=== PATIENT | female | born 1940 | race Caucasian/White ===

== ENCOUNTER 2019-08-29 10:43 | Outpatient (CLI) | payer MEDICARE, OTHER, SELFPAY ==
[2019-08-29 11:38] LABS: Hemoglobin A1C 5.6 % (<5.7)
[2019-08-29 11:42] LABS: Blood Urea Nitrogen 29 mg/dL (7-17); Calcium 8.5 mg/dL (8.4-10.2); Carbon Dioxide 28 mmol/L (22-30); Chloride 99 mmol/L (98-107); Estimated Glomerular Filt Rate 60; Glucose 108 mg/dL (65-105); Potassium 5.1 mmol/L (3.4-5.0); Sodium 134 mmol/L (137-145)
== END 2019-08-29 10:44 | disposition home or self-care (01) ==
PROVIDERS: PCP Internal Medicine; Visit Provider Internal Medicine
DX: J44.9 Chronic obstructive pulmonary disease, unspecified (principal); D84.9 Immunodeficiency, unspecified; Z72.0 Tobacco use; Z79.899 Other long term (current) drug therapy
CPT/HCPCS: 36415; 80048; 83036

== ENCOUNTER 2019-09-19 15:49 | Outpatient (CLI) | payer MEDICARE, OTHER, SELFPAY ==
[2019-09-19 16:31] LABS: Blood Urea Nitrogen 32 mg/dL (7-17); CRP < 0.5 mg/dL (<1.0); Calcium 7.9 mg/dL (8.4-10.2); Carbon Dioxide 26 mmol/L (22-30); Chloride 100 mmol/L (98-107); Creatine Kinase 22 U/L (30-135); Estimated Glomerular Filt Rate 60; Glucose 113 mg/dL (65-105); Potassium 4.8 mmol/L (3.4-5.0); Sodium 132 mmol/L (137-145)
[2019-09-19 16:53] LABS: Hemoglobin A1C 5.6 % (<5.7)
[2019-09-19 17:02] LABS: Erythrocyte Sedimentation Rate 1 mm/hr (0-20)
[2019-09-22 11:26] LABS: Aldolase 6.8 U/L (<=8.1)
== END 2019-09-19 15:50 | disposition home or self-care (01) ==
PROVIDERS: PCP Internal Medicine; Visit Provider Internal Medicine
DX: G72.0 Drug-induced myopathy (principal); R54 Age-related physical debility; T38.0X5A Adverse effect of glucocorticoids and synthetic analogues, initial encounter; Z79.899 Other long term (current) drug therapy
CPT/HCPCS: 36415; 80048; 82085; 82550; 83036; 85652; 86140

== ENCOUNTER 2019-11-23 10:39 | Outpatient (CLI) | payer MEDICARE, OTHER, SELFPAY ==
[2019-11-23 11:05] LABS: Basophils Percent Auto 0.2 % (0.2-1.2); Hematocrit 47.9 % (37.0-47.0); Hemoglobin 15.1 g/dL (12.0-15.0); Immature Granulocyte Absolute 0.14 K/mm3 (0.00-0.031); Immature Granulocyte Percent A 0.7 % (0-0.5); Lymphocytes Absolute Auto 0.79 K/mm3 (0.9-3.2); Mean Corpuscular HGB Conc 31.5 g/dl (32-36); Mean Corpuscular Hemoglobin 24.4 pg (26-34); Mean Corpuscular Volume 77.5 fl (80-100); Monocytes Absolute Auto 0.5 K/mm3 (0.1-0.6); Monocytes Percent Auto 2.6 % (2.6-8.5); Neutrophils Absolute Auto 18.3 K/mm3 (1.3-6.7); Neutrophils Percent Auto 92.5 % (45.5-73.1); Platelet Count Result 259 k/mm3 (150-375); Red Blood Count 6.18 M/mm3 (4.2-5.4); White Blood Count 19.8 K/mm3 (4.5-10.0)
== END 2019-11-23 10:40 | disposition home or self-care (01) ==
PROVIDERS: PCP Internal Medicine; Visit Provider Podiatrist Foot & Ankle Surgery
DX: L03.115 Cellulitis of right lower limb (principal)
CPT/HCPCS: 36415; 85025

== ENCOUNTER 2019-12-14 00:26 | Outpatient (CLI) | payer MEDICARE, OTHER, SELFPAY ==
[2019-12-14 17:43] LABS: SARS-CoV-2 RNA PCR Negative
== END 2019-12-14 00:27 | disposition home or self-care (01) ==
LOC: ANHCOVIDDT 00:26
PROVIDERS: PCP Internal Medicine; Visit Provider Podiatrist Foot & Ankle Surgery
DX: Z01.818 Encounter for other preprocedural examination (principal); Z11.59 Encounter for screening for other viral diseases
CPT/HCPCS: 87635; C9803; U0003

== ENCOUNTER 2019-12-14 08:52 | Outpatient (CLI) | payer MEDICARE, OTHER, SELFPAY ==
--- NOTE | 2019-12-14 08:57 | ECG_ITS ---
SINUS TACHYCARDIA POSSIBLE LEFT ATRIAL ENLARGEMENT LOW QRS VOLTAGE IN PRECORDIAL LEADS BASELINE ARTIFACT- I, II, III, AVR, AVL, AVF ABNORMAL ECG Electronically Signed On 12-15-2019 14:53:37 CDT by Alli Smith D.O. NO PREVIOUS ECG AVAILABLE FOR COMPARISON [facility]
[2019-12-14 09:51] LABS: INR 0.9; Prothrombin Time 11.6 Seconds (11.1-14.7)
== END 2019-12-14 08:53 | disposition home or self-care (01) ==
LOC: ANHSURGERY 08:56
PROVIDERS: Anesthesiology; PCP Internal Medicine; Visit Provider Podiatrist Foot & Ankle Surgery
DX: Z01.818 Encounter for other preprocedural examination (principal); Z72.0 Tobacco use; R79.89 Other specified abnormal findings of blood chemistry; R94.31 Abnormal electrocardiogram [ECG] [EKG]
CPT/HCPCS: 36415; 85610; 85730; 87635; 93005; C9803; U0003

== ENCOUNTER 2019-12-16 11:39 | Inpatient (IN) | payer MEDICARE, OTHER, SELFPAY ==
[2019-12-09 14:03] VITALS: BMI 20.5
[2019-12-16] VITALS (13 sets, daily range): BP systolic 96–116; BP diastolic 52–68; PULSE 64–95; RESP 10–20; TEMP 36.1–36.5; O2SAT 95–100; BMI 22.8
--- NOTE | ~2019-12-16 | XR_ITS ---
EXAMINATION: XR surgery orthopedic DATE: 12/16/2019 10:59 INDICATION: Right foot transmetatarsal amputation TECHNIQUE: A single dorsal plantar fluoroscopic spot image of the right forefoot was obtained during procedure performed by Dr. Mac. Radiologist was not present for the imaging or procedure. The am ount of fluoroscopy time used during this procedure was 0.1 minutes. COMPARISON: 11/25/2018 FINDINGS: Transmetatarsal amputations across the first-fifth metatarsal diaphyses. Alignment and profile joint space at the visualized midfoot appear normal. No fractures. IMPRESSION: 1. Percent and fifth transmetatarsal amputations. See procedure note for further detail. Reviewed, dictated and finalized at location A. IMPRESSION: 1. Percent and fifth transmetatarsal amputations. See procedure note for furthe r detail.
--- NOTE | 2019-12-16 07:12 | WPDHPUPDATE1 ---
History and Physical Update Update Date/Time: 12/16/19 07:12 History and Physical has been reviewed, including an updated exam of the patient. There are NO changes in the patient's condition. Risks, benefits, and alternatives have been discussed and questions answered. Patient agrees to proceed with procedure.
--- NOTE | 2019-12-16 09:19 | WPDANESEPPF ---
Anes - Initial Pre Proc Eval Procedure: Operation Date: 12/16/19 10:30 Proposed Procedures p Transmetatarsal Amputation Right Foot - Torey Mac JR, MD Date/Time: 12/16/19 09:19 Surgeon: Torey Mac JR, MD Pre Op Diagnosis: gangrene right foot Patient Data Age: 78 Gender: F Height: 5 ft 5.5 in Weight: 55.7 kg Allergies Allergy/AdvReac Type Severity Reaction Status Date / Time Bitjpmh-Mta-Rrh Reductase Allergy Unknown Joint Pain Verified 12/16/19 08:52 Inhibitor Home Medications Medication Instructions Recorded Confirmed Type spironolactone 50 mg tablet 50 mg PO BID #180 tablet 05/30/19 12/16/19 Rx albuterol sulfate 2.5 mg INHALATION DAILY PRN ml 07/20/19 12/16/19 History albuterol sulfate 90 mcg/actuation 2 puff INHALATION DAILY PRN gm 07/20/19 12/16/19 History aerosol inhaler bumetanide 2 mg tablet 2 mg PO DAILY tablet 07/20/19 12/16/19 History methocarbamol 750 mg tablet 750 mg PO DAILY tablet 07/20/19 12/16/19 History folic acid 1 mg tablet 1 mg PO DAILY #90 tablet 07/25/19 12/16/19 Rx potassium chloride 20 mEq 20 meq PO BID #180 tablet 11/07/19 12/16/19 Rx tablet,extended release immun glob G(IgG)-pro-IgA 0-50 See Rx Instructions .ROUTE .COMPLEX 11/30/19 12/16/19 History prednisolone sodium phosphate 10 40 mg PO DAILY 11/30/19 12/16/19 History mg disintegrating tablet methylphenidate HCl 10 mg tablet 10 mg PO .COMPLEX #180 tablet 12/06/19 12/16/19 Rx omega-3 fatty acids 1,000 mg 3,000 mg PO DAILY cap 12/06/19 12/16/19 History capsule pregabalin 75 mg capsule 75 mg PO QID cap 12/06/19 12/16/19 History glycopyrrolate 9 mcg-formoterol 2 puff INHALATION BID 90 Days 12/07/19 12/16/19 Rx 4.8 mcg HFA aerosol inhaler #32.1 gm fluticasone propionate 50 1 spray NASAL BID PRN #54.6 ml 12/12/19 12/16/19 Rx mcg/actuation nasal spray,suspension Patient hx anesthesia problems: none Family hx anesthesia problems: none PMFSH Past Medical History Medical History ADD (attention deficit disorder) Adult BMI 19-24 kg/sq m Amputated toe of right foot Anxiety with depression Cancer Chronic low back pain Chronic obstructive pulmonary disease Elevated homocysteine Encounter for routine adult health examination with abnormal findings Frailty Gangrene 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 Muscle pain Muscle weakness Neuropathy Nicotine abuse On assisted drug therapy Pedal edema Polycythemia PVD (peripheral vascular disease) Right upper lobe pulmonary nodule Steroid-induced myopathy Venous insufficiency Surgical History Surgical History Cataract extraction status H/O: hysterectomy History of adenoidectomy History of appendectomy History of spinal fusion History of tonsillectomy Family History Family History Mother Family history of rheumatoid arthritis Family history of diabetes mellitus in first degree relative Diabetes mellitus Family history of pancreatic disease Father Family history of malignant neoplasm Social History Social History Smoking status: Current every day smoker Tobacco type: cigarettes Second hand tobacco smoke exposure: Yes Alcohol intake: never Anes - Eval Final PreProcedure Day of Procedure 12/16/19 09:19 Patient weight: normal Heart: regular rate and rhythm Lungs: decreased breath sounds Airway: Mallampati scale class II Neurological: alert and oriented Last oral intake: >/= 8 hours ASA classification: IV Emergent: no Anesthetic plan: proceed Anesthesia type and monitoring: general LMA and standard monitoring Other findings: solucortef 100mg Informed Consent: The patient's anesthetic plan and its attendant risks and benefits were discussed with the pa
[2019-12-16] MEDS: LACTATED RINGERS 1,000 ML 30 ML IV CONT (09:25)
[2019-12-16] MEDS: ceFAZolin 2 GM/D5W 50 ML 2 GM/50 ML BAG IVPB (10:00)
--- NOTE | 2019-12-16 11:35 | PM.OP ---
Procedure Note - Brief Procedure Note - Brief Date of procedure: 12/16/19 Pre-op diagnosis: gangrene right foot Post-op diagnosis: same Procedure performed: Transmetatarsal amputation right foot Anesthesia: GLMA and local Surgeon: Torey Mac JR, DPM Estimated blood loss (mL): 5 Condition: stable Disposition: floor
--- NOTE | 2019-12-16 14:14 | PCOTNOTE ---
rn coronary care unit spoke with Physician with therapy team present. Patient to be NWB (L) LE and bedrest until Thursday12/18/19. OT to evaluate patient Thursday12/18/19.
--- NOTE | 2019-12-16 14:16 | PCPTNOTE ---
As per RN communication - pt is not to received PT eval until Thursday. On Thursday - DPM will decide what the wt bearing status will be. Will check in with nursing as well for wt bearing status prior to PT eval on Thursday - 12/18/2019.
[2019-12-16] MEDS: CLINDAMYCIN 600 MG/NS 50 ML 600 MG/50 ML PIGGYBACK 100 MG IVPB ×2 (14:44→21:18)
--- NOTE | 2019-12-16 15:23 | ADMGEN ---
This patient, Cristina Avery, was admitted to Medical Room 247-. Patient/family oriented to hospital policies and general routines including ID bracelet, bed and alarms, visiting hours, pain management, procedures, bathroom and other care routines, personal items, smoking policy, room service/diet, and visiting hours. Valuables list has been completed. Information on how to activate the Rapid Response Team has been discussed. Patient/Family are encouraged to report perceived risks to care and to ask questions if they do not understand what they are told or what they should do.
--- NOTE | 2019-12-16 15:34 | PM.IMHP ---
H&P: HPI History of Present Illness Chief complaint: gangrene right foot Narrative: Prudence Daksha Avery is a 78 year old female who has severe neuropathy. She has been dealing with chronic infections to her right foot. She has had a previous right this 2nd digit amputation in the past. This was gangrenous December 2018. The patient has been diagnosed with critical leg ischemia with wet gangrene developing to the lesser digits of the right forefoot. This developed June of 2019. Patient underwent a transmetatarsal amputation of right foot today. This was performed by Dr. Mac. The patient is having some discomfort which she rates at 8 at this time. The patient has severe neuropathy and would have difficulty transferring using her left foot. The patient is requesting for TRC consult. 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 Date of service is 12/16/2019 Review of Systems Review of Systems: All systems reviewed & are unremarkable except as noted in HPI and below Constitutional: Constitutional: Reports as per HPI and Reports no additional constitutional complaints Eyes: Eyes: Reports as per HPI and Reports no additional eye complaints ENT: Reports system reviewed and no additional complaints, except as documented and Reports Normal hearing present Cardiovascular: Cardiovascular: Reports no additional cardiovascular complaints Respiratory: Respiratory: Reports no additional respiratory complaints and Reports no additional respiratory complaints Gastrointestinal: Gastrointestinal: Reports as per HPI and Reports no additional gastrointestinal complaints Musculoskeletal: Musculoskeletal: Reports no additional musculoskeletal complaints Integumentary/Breasts: Skin/Breast: Reports system reviewed and no additional complaints, except as docu and Reports as per HPI Neurologic: Reports system reviewed and no additional complaints, except as documented, Reports as per HPI and Reports Normal hearing present Psychiatric: Psychiatric: Reports no additional psychiatric complaints and Reports as per HPI Endocrine: Endocrine: Reports no additional endocrine complaints Hematologic/Lymphatic: Hematologic/Lymphatic: Reports no additional hematologic/lymphatic complaints Allergic/Immunologic: Allergic/Immunologic: Reports no additional allergic/immunologic complaints [facility] Past Medical History Medical History (Updated 12/16/19 @ 16:02 by Maureen Hernandez NP) ADD (attention deficit disorder) Adult BMI 19-24 kg/sq m Amputated toe of right foot Anxiety with depression Cancer Chronic low back pain Chronic obstructive pulmonary disease Elevated homocysteine Encounter for routine adult health examination with abnormal findings Footdrop Frailty Gangrene Head and neck cancer Herpes zoster 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 Patient reports that she had metastatic liver disease and was treated with Keytruda. Steroid-induced myopathy Venous insufficiency Surgical History Surgical History (Updated 12/16/19 @ 15:44 by Maureen Hernandez NP) Cataract extraction status H/O rectal polypectomy H/O: hysterectomy History of adenoidectomy History of appendectomy History of eyelid surgery History of spinal fusion History of tonsillectomy Family History Family History Mother Family history of rheumatoid arthritis Family history of diabetes mellitus in first degree relative Diabetes mellitus Family history of pancreatic disease Father Family history of malignant neoplasm Social History Social History (Updated 12/16/19 @ 15:50 by
--- NOTE | 2019-12-16 16:06 | OP_ITS ---
DATE OF PROCEDURE: 12/16/2019 PREOPERATIVE DIAGNOSES: 1. Wet gangrene, right foot with severe peripheral arterial disease to the right lower extremity. 2. Ulceration present to the anterior right leg and lateral right heel. POSTOPERATIVE DIAGNOSES: 1. Wet gangrene, right foot with severe peripheral arterial disease to the right lower extremity. 2. Ulceration present to the anterior right leg and lateral right heel. PROCEDURE: 1. Transmetatarsal amputation of the right foot. 2. Full-thickness skin graft to the anterior aspect of the right leg and lateral aspect of the right heel. PATHOLOGY: Right forefoot sent for gross and histopathology. ANESTHESIA: General with local. HEMOSTASIS: Pneumatic thigh tourniquet at 207 mmHg. ESTIMATED BLOOD LOSS: 5 mL. MATERIALS USED: Surgicel, 3-0 Vicryl, 4-0 Vicryl and 3-0 Prolene. INJECTABLES: 20 mL of Exparel injected preoperatively. COMPLICATIONS: None. PROCEDURE IN DETAIL: Under mild sedation, the patient was brought into the operating room, placed on the operating table in the supine position. Pneumatic thigh tourniquet was placed about the patient's right side. Following general anesthesia, local anesthesia was obtained about the right lower extremity utilizing 20 mL of Exparel, 10 mL were deposited just inferior to the tibial nerve medially on the ankle, the other 10 mL were administered approximately 3 cm and 1 cm posterior to the neck of the fibula along the common peroneal nerve. Aspiration was performed to rule out injection into the vascular vessels. After the local anesthetic was administered, the foot and ankle were then scrubbed, prepped, and draped in the usual aseptic manner to the level of the below the knee. An Esmarch bandage was then used to examine the patient's right foot and the pneumatic thigh tourniquet was inflated to 207 mmHg. The surgery began in the following manner. Attention was directed to the dorsal aspect of the right forefoot, where 2 converging semi-elliptical incisions were made, one just proximal to the 1st through 5th metatarsal heads extending laterally on the 1st metatarsal, distal metaphyseal-diaphyseal junction and 5th metatarsal metaphyseal diaphyseal junction. Next, the plantar flap was created by making another semi-elliptical incision again just distal to the 1st through 5th metatarsal heads. The incisions were then continued deep down through the subcutaneous tissues using sharp and blunt dissection. All bleeders were ligated and cauterized as necessary. At this point, a freer periosteal elevator was used to free the soft tissue structures and periosteal structures from the 1st through 5th metatarsals. At this point, a sagittal bone saw was used to make a slightly oblique osteotomy through metatarsals 1 through 5 of the right foot. The dorsal aspect was made slightly longer. After completing the osteotomies, the plantar structures were resected freeing the forefoot from the remaining foot. The forefoot was then placed on the back table. The wound site was then flushed with copious amounts of sterile saline. Healthy bleeding viable tissue was only left. A bone rasp was used to make sure that there was no rough edges to the resected metatarsals. Fluoroscopy was used to make sure that the metatarsals were in adequate parabola of adequate length to make sure that there was no postsurgery overloading that can lead to ulcerations. Next, careful dissection was used to make sure that all tendinous structures were resected from the operative site. All remaining bleeders were cauterized and ligated as necessary at this point, in order to prevent hematoma formation postoperatively. Next, the subcutaneous structures were reapproximated and coapted utilizing 3-0 Vicryl. The nice plantar flap w
[2019-12-16] MEDS: PHARMACIST COMMUNICATION ORDER 1 EACH XX (17:24)
[2019-12-16] MEDS: POTASSIUM CHLORIDE 20 MEQ TABLET.ER PO (17:42)
[2019-12-16] MEDS: PREGABALIN 75 MG CAPSULE 150 MG PO ×2 (17:42→21:17)
[2019-12-16] MEDS: SPIRONOLACTONE 50 MG TABLET PO (17:43)
[2019-12-16] MEDS: methocarbamoL 750 MG TABLET PO (21:16)
[2019-12-17 02:00] VITALS: BP 119/47; PULSE 75; RESP 20; TEMP 35.9; O2SAT 97
[2019-12-17] MEDS: HYDROMORPHONE HCL 1 MG/ML INJ 0.5 MG IV PUSH ×2 (03:28→08:03)
[2019-12-17 05:42] LABS: Hematocrit 40.5 % (37.0-47.0); Hemoglobin 12.4 g/dL (12.0-15.0); Mean Corpuscular HGB Conc 30.6 g/dl (32-36); Mean Corpuscular Hemoglobin 23.7 pg (26-34); Mean Corpuscular Volume 77.3 fl (80-100); Mean Platelet Volume 9.6 fl (7.4-10.4); Platelet Count Result 200 k/mm3 (150-375); Red Blood Count 5.24 M/mm3 (4.2-5.4); Red Cell Distribution Width 19.5 % (11.5-14.5); White Blood Count 15.3 K/mm3 (4.5-10.0)
[2019-12-17 05:45] LABS: Blood Urea Nitrogen 16 mg/dL (7-17); Carbon Dioxide 33 mmol/L (22-30); Chloride 98 mmol/L (98-107); Estimated CRCL calculation 44 ml/min; Estimated Glomerular Filt Rate > 60; Glucose 63 mg/dL (65-105); Potassium 3.6 mmol/L (3.4-5.0); Sodium 130 mmol/L (137-145)
[2019-12-17] MEDS: CLINDAMYCIN 600 MG/NS 50 ML 600 MG/50 ML PIGGYBACK 100 MG IVPB (05:45)
[2019-12-17 06:00] VITALS: BP 110/82; PULSE 84; RESP 20; TEMP 36.3; O2SAT 98
[2019-12-17] MEDS: PREGABALIN 75 MG CAPSULE PO ×2 (08:02→12:12)
[2019-12-17] MEDS: methocarbamoL 750 MG TABLET PO ×3 (08:02→16:08)
[2019-12-17] MEDS: POTASSIUM CHLORIDE 20 MEQ TABLET.ER PO ×2 (08:02→16:08)
[2019-12-17] MEDS: predniSONE 20 MG TABLET 40 MG PO (08:02)
[2019-12-17] MEDS: SPIRONOLACTONE 50 MG TABLET PO ×2 (08:03→16:08)
[2019-12-17] MEDS: FOLIC ACID 1 MG TABLET PO (08:03)
--- NOTE | 2019-12-17 08:06 | WPDANESPN ---
Anes - Prog Note Post-Op Date/Time: 12/17/19 08:06 Cardiovascular status: normal Respiratory status: normal Airway patency: baseline Mental status: baseline Post-Op hydration status: normal Vital Signs: Last Vital Signs Temp 36.3 C L 12/17/19 06:00 Pulse 84 12/17/19 06:00 Resp 20 12/17/19 06:00 BP 110/82 12/17/19 06:00 Pulse Ox 98 12/17/19 06:00 I/O: Intake & Output 12/16/19 12/17/19 12/17/19 23:59 07:59 15:59 Intake Total 830 450 Output Total 1175 650 Balance -345 -200 Laboratory Tests 12/17/19 04:48 12/17/19 04:48 12/17/19 12/17/19 04:48 04:48 WBC 15.3 H RBC 5.24 Hgb 12.4 Hct 40.5 MCV 77.3 L MCH 23.7 L MCHC 30.6 L RDW 19.5 H Plt Count 200 MPV 9.6 Sodium 130 L Potassium 3.6 Chloride 98 Carbon Dioxide 33 H BUN 16 D Creatinine 0.80 Estim Creat Clear Calc 44 Estimated GFR > 60 Glucose 63 L Calcium 7.0 L Post-procedural complaints: none Patient Feedback: Patient satisfied with anesthetic care.
[2019-12-17] MEDS: DOCUSATE SODIUM 100 MG CAPSULE PO ×2 (08:08→20:06)
[2019-12-17 10:00] VITALS: BP 107/48; PULSE 80; RESP 18; TEMP 36.6; O2SAT 98
--- NOTE | 2019-12-17 10:24 | PM.IMPN ---
Progress Note: A&P Assessment and Plan (1) Amputation of right forefoot: Code(s): S98.911A - Complete traumatic amputation of right foot, level unspecified, initial encounter Status: Acute Assessment and Plan: S/P transmetatarsal amputation by Dr. Mac on 12/16/2019 due to wet gangrene. POD # 1. Postoperative care per Dr. Mac. WBC decreasing at 15.3 today. Has completed postoperative IV clindamycin. Continue PT/OT. TRC consult in process. (2) Neuropathy: Code(s): G62.9 - Polyneuropathy, unspecified Status: Acute Assessment and Plan: Known chronic issue. Continue Lyrica and Robaxin. Also has pain pump. Will continue to allow IV Dilaudid for additional help with pain. Continue home prednisone but hopeful can start tapering soon. (3) Chronic obstructive pulmonary disease: Qualifiers: COPD type: unspecified COPD Qualified Code(s): J44.9 - Chronic obstructive pulmonary disease, unspecified Code(s): J44.9 - Chronic obstructive pulmonary disease, unspecified Status: Chronic Assessment and Plan: No current exacerbation. Patient is on room air. Continue albuterol nebulizer as needed. (4) Anxiety with depression: Code(s): F41.8 - Other specified anxiety disorders Status: Acute Assessment and Plan: Mood is presently stable. Not currently on medication at home but will monitor. (5) Muscle weakness: Code(s): M62.81 - Muscle weakness (generalized) Status: Acute Assessment and Plan: Chronic. Continue PT/OT. (6) Common variable immunodeficiency, unspecified: Code(s): D83.9 - Common variable immunodeficiency, unspecified Status: Acute Assessment and Plan: No acute issue. Will continue home prednisone at this time. Will monitor. (7) Polycythemia: Code(s): D75.1 - Secondary polycythemia Status: Acute Assessment and Plan: Has required chemotherapy in the past. Hemoglobin is 12.4 today. Will monitor while here. (8) DVT prophylaxis: Code(s): Z29.9 - Encounter for prophylactic measures, unspecified Status: Acute Assessment and Plan: SCDs. Time Spent With Patient Time with patient: 15 - 25 minutes Subjective Date/time seen: 12/17/19 10:24 Interval history: Date of Service: 12/17/2019. Admitted after transmetarsal amputation right foot for rehab placement. Complains of increased neuropathy pain in right foot overnight. No chest pain or shortness of breath. No abdominal pain, nausea or vomiting. No headache. Review of Systems Constitutional: Constitutional: Denies chills and Denies fever(s) ENT: Denies dysphagia Cardiovascular: Cardiovascular: Denies chest pain Respiratory: Respiratory: Denies dyspnea Gastrointestinal: Gastrointestinal: Denies abdominal pain, Denies nausea and Denies vomiting Genitourinary: Genitourinary: Reports no additional female genitourinary complaints Musculoskeletal: Comments: pain right foot Integumentary/Breasts: Skin/Breast: Denies rash Neurologic: Comments: peripheral neuropathy pain increased in right foot Psychiatric: Psychiatric: Denies anxiety, Denies confusion and Denies depression Exam Narrative: Exam Narrative: Awake and alert. Const: General: no acute distress HENMT: Mouth: Yes moist mucous membranes Neck: Neck: supple Lymphatic: lymphadenopathy not noted Resp: Auscultation: clear to auscultation bilaterally, no rales and no wheezes Cardio: Rate: regular rate Rhythm: regular rhythm GI: Inspection: non-distended GI Palp: Yes Soft to palpation and No Tenderness to palpation present (GI) Auscultation: normal bowel sounds Skin: General skin exam: normal color Neuro: Cognition (Neuro): normal cognition Speech: normal speech Extrem: Right lower extremity: foot (postoperative bandage in place) Left lower extremity: no edema Psych: Mental Status: mental status grossly normal Affect
[2019-12-17 14:00] VITALS: BP 101/79; PULSE 74; RESP 19; TEMP 36.4; O2SAT 96
[2019-12-17] MEDS: BUMETANIDE 1 MG TABLET 2 MG PO (16:07)
[2019-12-17] MEDS: PREGABALIN 75 MG CAPSULE 150 MG PO ×2 (16:13→20:04)
[2019-12-17 18:00] VITALS: BP 98/74; PULSE 96; RESP 18; TEMP 36.7; O2SAT 96
[2019-12-17 20:00] VITALS: BP 121/57; PULSE 69; RESP 18; TEMP 36.2; O2SAT 98
[2019-12-18] VITALS: BP 123/60; PULSE 65; RESP 18; TEMP 36.3; O2SAT 90
[2019-12-18 04:46] LABS: Hematocrit 43.1 % (37.0-47.0); Mean Corpuscular HGB Conc 30.2 g/dl (32-36); Mean Corpuscular Hemoglobin 23.9 pg (26-34); Mean Corpuscular Volume 79.4 fl (80-100); Mean Platelet Volume 9.4 fl (7.4-10.4); Platelet Count Result 186 k/mm3 (150-375); Red Blood Count 5.43 M/mm3 (4.2-5.4); Red Cell Distribution Width 19.9 % (11.5-14.5); White Blood Count 12.5 K/mm3 (4.5-10.0)
[2019-12-18 05:04] LABS: Blood Urea Nitrogen 13 mg/dL (7-17); Calcium 6.9 mg/dL (8.4-10.2); Carbon Dioxide 33 mmol/L (22-30); Chloride 101 mmol/L (98-107); Estimated CRCL calculation 44 ml/min; Estimated Glomerular Filt Rate > 60; Glucose 63 mg/dL (65-105); Sodium 132 mmol/L (137-145)
[2019-12-18 06:00] VITALS: BP 137/99; PULSE 68; RESP 18; TEMP 36.7; O2SAT 100
[2019-12-18] MEDS: POTASSIUM CHLORIDE 20 MEQ TABLET.ER PO ×2 (08:32→16:52)
[2019-12-18] MEDS: predniSONE 20 MG TABLET 40 MG PO (08:32)
[2019-12-18] MEDS: methocarbamoL 750 MG TABLET PO ×3 (08:32→16:52)
[2019-12-18] MEDS: FOLIC ACID 1 MG TABLET PO (08:32)
[2019-12-18] MEDS: SPIRONOLACTONE 50 MG TABLET PO ×2 (08:32→16:52)
[2019-12-18] MEDS: PREGABALIN 75 MG CAPSULE PO ×2 (08:36→12:46)
[2019-12-18] MEDS: DOCUSATE SODIUM 100 MG CAPSULE PO (08:36)
--- NOTE | 2019-12-18 09:05 | WPDPN ---
Progress Note: A&P Additional Plan 2 days s/p right TMA -start OT/PT evaluation for [facility] help with transfers/transitions. Ambulation status non weightbearing with Wheel Chair. -Keep dressing intact while at rehab hospital. Dr. Mac will change during the patients one week follow up appointment. - Will follow up in my office for a follow up visit December 22, 2019. Appointment already scheduled -Finish course of Clindamycin 300mg q 8 for 10 days Time Spent With Patient Time with patient: 15 - 25 minutes Exam Extrem: Ankle/foot/toe images: 1. Right TMA site is well coapted. Ecchymosis noticed medially. CFT is immediate to the dorsal and plantar flaps. No erythema noted. 2. Discontinuity of skin to lateral ankle full thickness. Objective Data Vital Signs Vital Signs: Vital Signs - 24 hr 12/17/19 10:00 12/17/19 14:00 12/17/19 18:00 Temperature 36.6 C 36.4 C L 36.7 C Pulse Rate 80 74 96 Respiratory Rate 18 19 18 Blood Pressure 107/48 L 101/79 98/74 L Pulse Oximetry 98 96 96 12/17/19 20:00 12/18/19 00:00 12/18/19 06:00 Temperature 36.2 C L 36.3 C L 36.7 C Pulse Rate 69 65 68 Respiratory Rate 18 18 18 Blood Pressure 121/57 L 123/60 137/99 H Pulse Oximetry 98 90 100 Intake/Output Intake/Output: Intake & Output 12/15/19 12/16/19 12/17/19 12/18/19 23:59 23:59 23:59 23:59 Intake Total 1130 2180 1200 Output Total 1175 1400 400 Balance -45 780 800 Meds/Results Medications: Active Medications Generic Name Dose Route Start Last Admin Trade Name Freq PRN Reason Stop Dose Admin Hydrocodone Bitart/Acetaminophen 1 tab 12/16/19 12:00 12/18/19 08:36 Blaine 5-325 Mg PO 1 tab Q4H PRN Administration Pain 5 OR LESS Albuterol 2.5 mg 12/16/19 12:07 Albuterol Sulf Neb 2.5 Mg/3 Ml INHALATION DAILYRT PRN Wheezing Bumetanide 2 mg 12/17/19 17:00 12/17/19 16:07 Bumex Po PO 2 mg DAILY@1700 BLANCA Administration Docusate Sodium 100 mg 12/16/19 15:19 12/18/19 08:36 Colace Capsule PO 100 mg Q12H PRN Administration Constipation Fluticasone Propionate 1 spray 12/16/19 12:07 Flonase 0.05% Nasal [place] NASAL BID PRN nasal congestion Folic Acid 1 mg 12/17/19 09:00 12/18/19 08:32 Folic Acid PO 1 mg DAILY BLANCA Administration Hydromorphone HCl 0.5 mg 12/16/19 11:39 12/17/19 08:03 Dilaudid Inj IV PUSH 0.5 mg Q2H PRN Administration Pain Rated 6 or Greater Methocarbamol 750 mg 12/16/19 17:45 12/18/19 08:32 Robaxin PO 750 mg TID BLANCA Administration Methylphenidate HCl 10 mg 12/16/19 15:03 Ritalin PO 6XD PRN Drowsiness Ondansetron HCl 4 mg 12/16/19 12:05 Zofran Inj IV PUSH Q4H PRN Nausea And Vomiting Potassium Chloride 20 meq 12/16/19 17:00 12/18/19 08:32 Kcl Tablet PO 20 meq BID BLANCA Administration Prednisone 40 mg 12/17/19 08:00 12/18/19 08:32 Prednisone PO 40 mg DAILY@0800 BLANCA Administration Pregabalin 150 mg 12/16/19 17:00 12/17/19 20:04 Lyrica PO 150 mg 1700,2100 BLANCA Administration Pregabalin 75 mg 12/17/19 09:00 12/18/19 08:36 Lyrica PO 75 mg 0900,1200 BLANCA Administration Spironolactone 50 mg 12/16/19 17:00 12/18/19 08:32 Aldactone PO 50 mg BID BLANCA Administration Radiology Results: ITS Impressions Intraoperative X-Ray 12/16/19 15:12 IMPRESSION: 1. Percent and fifth transmetatarsal amputations. See procedure note for further detail. Labs Labs: Laboratory Results - last 24 hr 12/18/19 12/18/19 04:27 04:27 WBC 12.5 H RBC 5.43 H Hgb 13.0 Hct 43.1 MCV 79.4 L MCH 23.9 L MCHC 30.2 L RDW 19.9 H Plt Count 186 MPV 9.4 Sodium 132 L Potassium 4.0 Chloride 101 Carbon Dioxide 33 H BUN 13 Creatinine 0.80 Estim Creat Clear Calc 44 Estimated GFR > 60 Glucose 63 L Calcium 6.9 L Quality VTE Prophylaxis VTE prophylaxis: mechanical ordered (Left leg
[2019-12-18 12:00] VITALS: BP 138/86; PULSE 63; RESP 18; TEMP 36.8; O2SAT 100
--- NOTE | 2019-12-18 13:07 | PM.IMPN ---
Progress Note: A&P Assessment and Plan (1) Amputation of right forefoot: Code(s): S98.911A - Complete traumatic amputation of right foot, level unspecified, initial encounter Status: Acute Assessment and Plan: S/P transmetatarsal amputation by Dr. Mac on 12/16/2019 due to wet gangrene. POD # 2. Postoperative care per Dr. Mac. WBC to decrease at 12.5 today. Completed postoperative IV clindamycin. Per Podiatry, patient to continue oral clindamycin for 10 day course. Continue PT/OT. TRC consult in process. Will continue to monitor. (2) Neuropathy: Code(s): G62.9 - Polyneuropathy, unspecified Status: Acute Assessment and Plan: Known chronic issue. Continue Lyrica and Robaxin. Also has pain pump. Will continue to allow IV Dilaudid for additional help with pain. Also on home prednisone with hopes to start tapering soon as pain improves. (3) Muscle weakness: Code(s): M62.81 - Muscle weakness (generalized) Status: Acute Assessment and Plan: Chronic. Continue PT/OT. (4) Chronic obstructive pulmonary disease: Qualifiers: COPD type: unspecified COPD Qualified Code(s): J44.9 - Chronic obstructive pulmonary disease, unspecified Code(s): J44.9 - Chronic obstructive pulmonary disease, unspecified Status: Chronic Assessment and Plan: Stable without exacerbation. Remains on room air. Continue albuterol nebulizer as needed. (5) Anxiety with depression: Code(s): F41.8 - Other specified anxiety disorders Status: Acute Assessment and Plan: Mood remains stable. Not currently on medication at home. Continue to monitor. (6) Common variable immunodeficiency, unspecified: Code(s): D83.9 - Common variable immunodeficiency, unspecified Status: Acute Assessment and Plan: No acute issue. Will allow patient to have home Hizentra infusion as scheduled today. Monitor. (7) Polycythemia: Code(s): D75.1 - Secondary polycythemia Status: Acute Assessment and Plan: Has required chemotherapy in the past. Hemoglobin now remains normal at 13.0 today. Checked periodically. (8) DVT prophylaxis: Code(s): Z29.9 - Encounter for prophylactic measures, unspecified Status: Acute Assessment and Plan: SCDs. Time Spent With Patient Time with patient: 15 - 25 minutes Subjective Date/time seen: 12/18/19 13:07 Interval history: Date of Service: 12/18/2019. Admitted after transmetarsal amputation right foot for rehab placement. Complains of neuropathy pain in both feet today. No increase in right foot compared to left today. No abdominal pain. No chest pain. No shortness of breath. No headache or dizziness. Review of Systems Constitutional: Constitutional: Denies chills and Denies fever(s) ENT: Denies dysphagia Cardiovascular: Cardiovascular: Denies chest pain Respiratory: Respiratory: Denies dyspnea Gastrointestinal: Gastrointestinal: Denies abdominal pain, Denies dysphagia, Denies nausea and Denies vomiting Genitourinary: Genitourinary: Reports no additional female genitourinary complaints Musculoskeletal: Comments: Neuropathy pain in both feet. Integumentary/Breasts: Skin/Breast: Denies rash Neurologic: Reports other (Pain secondary to neuropathy in both feet.) Psychiatric: Psychiatric: Denies anxiety, Denies confusion and Denies depression Exam Narrative: Exam Narrative: Awake and alert. Const: General: no acute distress HENMT: Mouth: Yes moist mucous membranes Neck: Neck: supple Lymphatic: lymphadenopathy not noted Resp: Auscultation: clear to auscultation bilaterally, no rales and no wheezes Cardio: Rate: regular rate Rhythm: regular rhythm GI: Inspection: non-distended GI Palp: Yes Soft to palpation and No Tenderness to palpation present (GI) Auscultation: normal bowel sounds Skin: General skin exam: normal color Neuro: Genera
--- NOTE | 2019-12-18 13:25 | PC.NURSE ---
Spoke with Dr. Mac in regards to patients wound care instructions. He stated that for the R leg, there is no need for nursing to change dressing. He will see the patient again in 4 days and he will change it then himself. Just reinforce prn.
--- NOTE | 2019-12-18 14:11 | PC.NURSE ---
Tubed down patients home medication, Hizentria.
[2019-12-18] MEDS: CLINDAMYCIN HCL 150 MG CAP 300 MG PO ×2 (15:06→21:01)
--- NOTE | 2019-12-18 15:14 | PHAR ---
Home medication identified in pharmacy and returned to [facility] nursing unit. Hizentra 10gm vial
[2019-12-18 16:00] VITALS: BP 133/89; PULSE 66; RESP 18; TEMP 36.7; O2SAT 100
[2019-12-18] MEDS: PREGABALIN 75 MG CAPSULE 150 MG PO ×2 (16:51→21:00)
--- NOTE | 2019-12-18 17:04 | PC.NURSE ---
Per Dr. Hill and Dr. Mac, patient may administer home medication the Hizentria.
[2019-12-18 20:00] VITALS: BP 120/75; PULSE 63; RESP 12; TEMP 36.7; O2SAT 98
[2019-12-18] MEDS: DOCUSATE SODIUM 100 MG CAPSULE 200 MG PO (21:01)
[2019-12-19] VITALS: BP 111/66; PULSE 58; RESP 16; TEMP 36.6; O2SAT 96
[2019-12-19 04:00] VITALS: BP 128/64; PULSE 66; RESP 12; TEMP 36.7; O2SAT 99
[2019-12-19] MEDS: CLINDAMYCIN HCL 150 MG CAP 300 MG PO ×2 (05:51→13:50)
[2019-12-19] MEDS: POTASSIUM CHLORIDE 20 MEQ TABLET.ER PO (08:09)
[2019-12-19] MEDS: PREGABALIN 75 MG CAPSULE PO ×2 (08:09→12:06)
[2019-12-19] MEDS: SPIRONOLACTONE 50 MG TABLET PO (08:09)
[2019-12-19] MEDS: methocarbamoL 750 MG TABLET PO ×2 (08:09→12:06)
[2019-12-19] MEDS: DOCUSATE SODIUM 100 MG CAPSULE 200 MG PO (08:09)
[2019-12-19] MEDS: predniSONE 20 MG TABLET 40 MG PO (08:10)
[2019-12-19] MEDS: FOLIC ACID 1 MG TABLET PO (08:10)
[2019-12-19 10:00] VITALS: BP 131/59; PULSE 74; RESP 16; TEMP 36.2; O2SAT 96
--- NOTE | 2019-12-19 13:29 | PM.IMPN ---
Progress Note: A&P Assessment and Plan (1) Amputation of right forefoot: Code(s): S98.911A - Complete traumatic amputation of right foot, level unspecified, initial encounter Status: Acute Assessment and Plan: S/P transmetatarsal amputation by Dr. Mac on 12/16/2019 due to wet gangrene. POD # 3. Postoperative care per Dr. Mac. WBC to decrease at 12.5 on 12/18/2019. Completed postoperative IV clindamycin. Per Podiatry, patient to continue oral clindamycin for 10 day course -currently on Day #2. Continue PT/OT. Notified by care coordination patient has been accepted to [facility]. Will discharge to [facility] today. (2) Neuropathy: Code(s): G62.9 - Polyneuropathy, unspecified Status: Acute Assessment and Plan: Known chronic issue. Continue Lyrica and Robaxin. Also has pain pump. Will continue to allow IV Dilaudid for additional help with pain while in acute care. Also on home prednisone with patient hoping to be able to taper medication soon as pain improves. Patient has expressed discussing this with Neurology while on [facility]. (3) Muscle weakness: Code(s): M62.81 - Muscle weakness (generalized) Status: Acute Assessment and Plan: Chronic. Continue PT/OT. (4) Chronic obstructive pulmonary disease: Qualifiers: COPD type: unspecified COPD Qualified Code(s): J44.9 - Chronic obstructive pulmonary disease, unspecified Code(s): J44.9 - Chronic obstructive pulmonary disease, unspecified Status: Chronic Assessment and Plan: Stable. No exacerbation. Remains on room air. Continue albuterol nebulizer as needed. (5) Anxiety with depression: Code(s): F41.8 - Other specified anxiety disorders Status: Acute Assessment and Plan: Mood stable. Not currently on medication at home. Continue to monitor. (6) Common variable immunodeficiency, unspecified: Code(s): D83.9 - Common variable immunodeficiency, unspecified Status: Acute Assessment and Plan: No acute issue. Home Hizentra infusion given as scheduled on 12/18/2019. (7) Polycythemia: Code(s): D75.1 - Secondary polycythemia Status: Acute Assessment and Plan: Has required chemotherapy in the past. Hemoglobin now remains normal at 13.0 on 12/18/2019. Checked periodically. (8) DVT prophylaxis: Code(s): Z29.9 - Encounter for prophylactic measures, unspecified Status: Acute Assessment and Plan: SCDs. Time Spent With Patient Time with patient: 15 - 25 minutes Subjective Date/time seen: 12/19/19 13:29 Interval history: Date of Service: 12/19/2019. Admitted after transmetarsal amputation right foot for rehab placement. Still has neuropathy pain but no increased today. Waiting to hear about acceptance to [facility]. No chest pain or shortness of breath. No abdominal pain. No nausea or vomiting. Review of Systems Constitutional: Constitutional: Denies chills and Denies fever(s) ENT: Denies dysphagia Cardiovascular: Cardiovascular: Denies chest pain Respiratory: Respiratory: Denies dyspnea Gastrointestinal: Gastrointestinal: Denies abdominal pain, Denies dysphagia, Denies nausea and Denies vomiting Genitourinary: Genitourinary: Reports no additional female genitourinary complaints Musculoskeletal: Comments: Pain in feet from neuropathy Integumentary/Breasts: Skin/Breast: Denies rash Neurologic: Reports other (Pain secondary to neuropathy in both feet.) Psychiatric: Psychiatric: Denies anxiety and Denies depression Exam Narrative: Exam Narrative: Awake and alert. Const: General: no acute distress HENMT: Mouth: Yes moist mucous membranes Neck: Neck: supple Lymphatic: lymphadenopathy not noted Resp: Auscultation: clear to auscultation bilaterally, no rales and no wheezes Cardio: Rate: regular rate Rhythm: regular rhythm GI: Inspection: non-distended GI Palp: Yes Soft to palpation and No Tendern
[2019-12-19 14:00] VITALS: BP 126/61; PULSE 77; RESP 16; TEMP 36.6; O2SAT 96
--- NOTE | 2019-12-19 16:49 | PM.DS ---
DS: Admitting Diagnosis Admitting Diagnosis Admitting Diagnosis: Encounter for observation for suspected exposure to other biological agents ruled out DS: Discharge Diagnosis Discharge Diagnosis (1) Amputation of right forefoot: Code(s): S98.911A - Complete traumatic amputation of right foot, level unspecified, initial encounter Status: Acute (2) Neuropathy: Code(s): G62.9 - Polyneuropathy, unspecified Status: Acute (3) Muscle weakness: Code(s): M62.81 - Muscle weakness (generalized) Status: Acute (4) Chronic obstructive pulmonary disease: Qualifiers: COPD type: unspecified COPD Qualified Code(s): J44.9 - Chronic obstructive pulmonary disease, unspecified Code(s): J44.9 - Chronic obstructive pulmonary disease, unspecified Status: Chronic (5) Anxiety with depression: Code(s): F41.8 - Other specified anxiety disorders Status: Acute (6) Common variable immunodeficiency, unspecified: Code(s): D83.9 - Common variable immunodeficiency, unspecified Status: Acute (7) Polycythemia: Code(s): D75.1 - Secondary polycythemia Status: Acute DS: Summary Hospital Course Reason for hospitalization: Gangrene right foot. Hospital Course: Date of Service of Discharge: December 19, 2019. History of Present Illness: Patient is an 78-year-old woman with known severe peripheral neuropathy. She reports she has been dealing with chronic infections to her right foot. She has had previous right 2nd digit amputation in the past. Patient recently diagnosed with critical leg ischemia with wet gangrene developing to lesser digits of the right forefoot. She has been followed by Dr. Mac who performed transmetatarsal amputation of the right foot on day of presentation. Patient is admitted postoperatively for rehab placement. No headache or dizziness. No chest pain or shortness of breath. No abdominal pain, nausea or vomiting. No fever. She does have known immunodeficiency, COPD, anxiety and depression. Course in Hospital: Patient was admitted to the medical floor postoperatively where she remained for the duration of her stay. Postoperative care per Dr. Mac. She did receive 3 doses IV clindamycin postoperatively then was transitioned over to oral clindamycin 300 mg every 8 hours to complete a 10 day course. Patient did initially have some increase in her peripheral neuropathy pain secondary to her surgery but this did decrease with patient having baseline neuropathic pain by the time of discharge. She was continued on home Lyrica and Robaxin. She also has a pain pump. She was given IV Dilaudid for additional help while in hospital. She also did continue home prednisone with patient hoping to be able to wean prednisone in the near future as her pain improves. She was seen by physical and occupational therapy. TR consult was initiated with patient accepted to [facility] by Thursday, December 19, 2019. Patient remained stable on room air with no exacerbation of her COPD. She did have albuterol nebulizer available as needed. Mood remains stable without patient on medication. Hemoglobin was monitored with known previous history of polycythemia. Hemoglobin was in the normal range while in hospital. With the patient stable, accepted to [facility] and authorization from insurance received, she was able to discharge to [facility] on December 19, 2019. Status at Discharge Cognitive/behavioral status at discharge: Stable. Functional status at discharge: uses cane/walker Overall status at discharge: patient is progressing back to baseline Time Spent with Patient Time attestation: Total time spent providing and/or coordinating discharge services: 35 minutes. Time spent: Greater than 30 minutes Exam Narrative: Exam Narrative: Vital Signs Temp Pulse Resp BP Pulse Ox 97.1 F L 95 18
== END 2019-12-19 17:30 | DRG 240 ==
LOC: ANH2MED 14:09
PROVIDERS: Hospitalist; Admitting Provider Family Medicine; PCP Internal Medicine; Visit Provider Podiatrist Foot & Ankle Surgery
PROC: 0Y6M0Z9 Detachment at Right Foot, Partial 1st Ray, Open Approach (ICD-10-PCS; CPT 28805; principal; 2019-12-16 10:30)
DX: I96 Gangrene, not elsewhere classified (principal); D83.9 Common variable immunodeficiency, unspecified; L97.418 Non-pressure chronic ulcer of right heel and midfoot with other specified severity; L97.818 Non-pressure chronic ulcer of other part of right lower leg with other specified severity; G62.9 Polyneuropathy, unspecified; J44.9 Chronic obstructive pulmonary disease, unspecified; F41.8 Other specified anxiety disorders; F98.8 Other specified behavioral and emotional disorders with onset usually occurring in childhood and adolescence; M85.80 Other specified disorders of bone density and structure, unspecified site; I73.89 Other specified peripheral vascular diseases; Z89.421 Acquired absence of other right toe(s); Z98.42 Cataract extraction status, left eye; Z98.41 Cataract extraction status, right eye; Z90.710 Acquired absence of both cervix and uterus; Z98.1 Arthrodesis status; F17.210 Nicotine dependence, cigarettes, uncomplicated; D75.1 Secondary polycythemia
CPT/HCPCS: 36415; 80048; 85027; 85610; 85730; 87635; 88307; 88311; 93005; 94640; 97110; 97116; 97161; 97165; 97530; 97535; A9270; C9290; C9803; J0690; J1170; J2405; J2704; J3010; J7120; J7512; U0003

== ENCOUNTER 2019-12-19 17:31 | IRF | payer MEDICARE, OTHER, SELFPAY ==
--- NOTE | 2019-12-19 17:30 | ADMGEN ---
This patient, Cristina Avery, was admitted to [facility] Room 230-02. Patient/family oriented to hospital policies and general routines including ID bracelet, bed and alarms, visiting hours, pain management, procedures, bathroom and other care routines, personal items, smoking policy, room service/diet, and visiting hours. Valuables list has been completed. Information on how to activate the Rapid Response Team has been discussed. Patient/Family are encouraged to report perceived risks to care and to ask questions if they do not understand what they are told or what they should do.
[2019-12-19 18:59] VITALS: BP 141/61; PULSE 72; RESP 20; TEMP 36.5; O2SAT 96
[2019-12-19 22:00] VITALS: BP 122/94; PULSE 58; RESP 20; TEMP 36.6; O2SAT 100
[2019-12-19] MEDS: methocarbamoL 750 MG TABLET PO (22:18)
[2019-12-19] MEDS: PREGABALIN 75 MG CAPSULE PO (22:19)
[2019-12-19] MEDS: CLINDAMYCIN HCL 150 MG CAP 300 MG PO (22:19)
[2019-12-19] MEDS: POTASSIUM CHLORIDE 20 MEQ TABLET.ER PO (22:21)
[2019-12-19 22:36] VITALS: PULSE 74; RESP 18; O2SAT 96
[2019-12-20 06:00] VITALS: BP 121/71; PULSE 68; RESP 18; TEMP 36.3; O2SAT 94
[2019-12-20] MEDS: methocarbamoL 750 MG TABLET PO ×3 (06:09→21:38)
[2019-12-20] MEDS: CLINDAMYCIN HCL 150 MG CAP 300 MG PO ×3 (06:09→21:37)
[2019-12-20 07:51] LABS: Basophils Percent Auto 0.2 % (0.2-1.2); Eosinophils Percent Auto 0.1 % (0-4.4); Hematocrit 44.6 % (37.0-47.0); Hemoglobin 13.6 g/dL (12.0-15.0); Immature Granulocyte Absolute 0.09 K/mm3 (0.00-0.031); Immature Granulocyte Percent A 0.8 % (0-0.5); Lymphocytes Absolute Auto 0.97 K/mm3 (0.9-3.2); Lymphocytes Percent Auto 9.1 % (18.3-44.2); Mean Corpuscular HGB Conc 30.5 g/dl (32-36); Mean Corpuscular Hemoglobin 23.9 pg (26-34); Mean Corpuscular Volume 78.5 fl (80-100); Mean Platelet Volume 9.9 fl (7.4-10.4); Monocytes Absolute Auto 1.2 K/mm3 (0.1-0.6); Monocytes Percent Auto 11.5 % (2.6-8.5); Neutrophils Absolute Auto 8.3 K/mm3 (1.3-6.7); Neutrophils Percent Auto 78.3 % (45.5-73.1); Platelet Count Result 182 k/mm3 (150-375); Red Blood Count 5.68 M/mm3 (4.2-5.4); Red Cell Distribution Width 20.4 % (11.5-14.5); White Blood Count 10.6 K/mm3 (4.5-10.0)
[2019-12-20 08:00] VITALS: PULSE 68; RESP 18; O2SAT 94
[2019-12-20 08:10] LABS: Blood Urea Nitrogen 8 mg/dL (7-17); Calcium 7.1 mg/dL (8.4-10.2); Carbon Dioxide 26 mmol/L (22-30); Chloride 106 mmol/L (98-107); Estimated Glomerular Filt Rate > 60; Glucose 76 mg/dL (65-105); Potassium 4.8 mmol/L (3.4-5.0); Sodium 133 mmol/L (137-145)
[2019-12-20] MEDS: POTASSIUM CHLORIDE 20 MEQ TABLET.ER PO ×2 (08:34→21:33)
[2019-12-20] MEDS: predniSONE 20 MG TABLET 40 MG PO (08:35)
[2019-12-20] MEDS: OMEGA 3 POLYUNSAT FATTY ACIDS 1 GM CAP 3 GM PO (08:35)
[2019-12-20] MEDS: FOLIC ACID 1 MG TABLET PO (08:35)
[2019-12-20] MEDS: SPIRONOLACTONE 50 MG TABLET PO ×2 (08:36→17:32)
[2019-12-20] MEDS: PREGABALIN 75 MG CAPSULE PO ×4 (08:40→21:34)
--- NOTE | 2019-12-20 11:00 | WPDREHABHP ---
H&P: HPI History of Present Illness Chief complaint: R Transmetatarsel Amputation Narrative: Cristina Avery is a 78 year old female HISTORY OF PRESENT ILLNESS: The patient's primary rehab impairment category is [id number] The etiologic diagnosis is right critical leg ischemia with wet gangrene status post transmetatarsal amputation I saw this patient [id number] on December 20, 2019 at 11:00 a.m. The patient is a 78-year-old present woman with a past medical history of chronic right foot infections, peripheral vascular disease, venous insufficiency and severe neuropathy who presented to [facility] in December 16, 2019 for his scheduled transmetatarsal amputation of her right foot. The patient had a previous right 2nd digit amputation in December of 2008 due to gangrene. In June of 2019 she developed critical leg ischemia with wet gangrene in the lesser digits of the right forefoot which did not improve with medical treatment. On December 16, 2019 performed a transmetatarsal amputation of the right foot due to weight gangrene with severe peripheral arterial disease to the right lower extremity and ulceration to the anterior right leg and lateral right heel. Postoperatively the patient has experienced hypertension, hypotension leukocytosis polycythemia hyponatremia hypoglycemia hypocalcemia postoperative pain and acute muscle weakness. She also has a small wound in the left outer portion of the left malleolus. She completed her postoperative IV antibiotics and will continue on oral clindamycin for 10 day course the stop date is December 28, 2019. Patient has a pain pump located on her back and she will continue on Robaxin and Lyrica. Actually what she told me is that she has a spinal cord stimulator. 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 The patient takes 2 liters of oxygen at night only. She is awake and alert of oriented x4 and very motivated to receive acute therapy anti RC. The patient reported that her physician is evaluating if her increased muscle weakness and balance issues are related to prednisone and they had started to wean her off prior to admit. Initially she was on prednisone 60 milligram and has weaned down to 40 milligram. No further urgent was will be made until she is done with the rehab. The patient has not traveled outside the [place] or had contact with someone who is ill and has traveled outside the [place] in the past 21 days. The patient has not traveled to an area of the [place] that is experiencing no transmission of the Coronavirus and has not had close personal contact with anyone that has. Patient does not have a fever the patient has experiencing any lowest Estee illness symptoms. Patient had preop negative COVID test on December 14, 2019 Therapy was initiated at the acute care facility and the patient transferred to us from [facility] on December 19, 2019 FALLS OR SURGERIES: The patient has had major surgeries in the 100 days prior to admission. They had no falls in the past year. They had no falls with injury in the past year. 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
[2019-12-20 12:55] VITALS: BMI 22.4
[2019-12-20 14:00] VITALS: BP 129/69; PULSE 92; RESP 18; TEMP 36.2; O2SAT 98
[2019-12-20] MEDS: polyethylene glycoL 3350 17 GM POWD.PACK PO ×2 (14:36→17:31)
[2019-12-20 20:25] VITALS: O2SAT 97
[2019-12-20 22:00] VITALS: BP 136/68; PULSE 68; RESP 16; TEMP 36.4; O2SAT 97
[2019-12-21] MEDS: CLINDAMYCIN HCL 150 MG CAP 300 MG PO ×3 (05:33→20:44)
[2019-12-21] MEDS: methocarbamoL 750 MG TABLET PO ×3 (05:34→20:45)
[2019-12-21 06:00] VITALS: BP 125/56; PULSE 66; RESP 18; TEMP 36.4; O2SAT 97
[2019-12-21 07:44] LABS: Potassium 4.7 mmol/L (3.4-5.0)
[2019-12-21 08:00] VITALS: PULSE 66; RESP 18; O2SAT 94
[2019-12-21 08:44] VITALS: O2SAT 94
[2019-12-21] MEDS: PREGABALIN 75 MG CAPSULE PO ×2 (09:45→12:43)
[2019-12-21] MEDS: OMEGA 3 POLYUNSAT FATTY ACIDS 1 GM CAP 3 GM PO (09:46)
[2019-12-21] MEDS: predniSONE 20 MG TABLET 40 MG PO (09:46)
[2019-12-21] MEDS: polyethylene glycoL 3350 17 GM POWD.PACK PO (09:47)
[2019-12-21] MEDS: BUMETANIDE 1 MG TABLET 2 MG PO (09:47)
[2019-12-21] MEDS: FOLIC ACID 1 MG TABLET PO (09:47)
[2019-12-21] MEDS: POTASSIUM CHLORIDE 20 MEQ TABLET.ER PO ×2 (09:48→20:44)
[2019-12-21] MEDS: SPIRONOLACTONE 50 MG TABLET PO (09:48)
--- NOTE | 2019-12-21 13:06 | RPD ---
INDIVIDUALIZED PLAN OF CARE FOR Prudence Daksha Avery Brief Synthesis of Pre-Admission Screen, Post-Admission Evaluation and Therapy Evaluations: The patient presents to rehab with right critical leg ischemia with wet gangrene s/p transmetatarsal amputation. Comorbidities include attention deficit disorder, anxiety with depression, chronic low back pain, chronic obstructive pulmonary disease, O2 therapy at night, high frequency hearing loss, immune deficiency disorder, neuropathy, nicotine abuse, pedal edema, polycythemia, peripheral vascular disease, steroid-induced myopathy, venous insufficiency, polymyalgia rheumatica, port-a-cath, left ankle wound, and peripheral arterial disease.The patient?s needs will be best met in an intensive program vs. at a lower level of care. The patient requires physician services for medical oversight, management of post-op complications in the setting of present comorbidities, and pain management. The patient requires nursing services for anticoagulation therapy, DVT prophylactics, possible IV administration, infection protection, medication management and education, pressure relief, and wound care. Deficits include:ADLs, Balance, Endurance, Family Training/Education, Mobility, Pain Management, ROM, Safety, Strength, and Transfers. Central Office Operator Supervisor/Case Management for: Discharge Planning and Patient/Family Counseling Physical Therapy: 5 days per week for 90 minutes. Treatments may include: Therapeutic Exercise, Gait Training, Neuromuscular Re-education, Transfer Training, Community Reintegration, Bed Mobility, Patient/Family Education, Wheelchair Mobility Group Therapy/Concurrent Therapy Rationales: -Improve attention span during functional activities in a distracted environment. -Enhance problem solving and/or adequate judgment skills during functional activities in a distracted environment. -Promote increased safety awareness in a distracted environment to reduce fall risk with functional tasks, transfers, and ambulation to allow a more safe, self-sufficient return to the home environment. -Improve dynamic balance skills to promote safety and independence with functional activities in a distracted environment for maximum gain. Occupational Therapy: 5 days per week for 90 minutes. Treatments may include: Therapeutic Exercise, Therapeutic Activity, Cognitive Training, Self-Care Transfer Training, Community Reintegration, Home Management, Patient/Family Education, Wheelchair Mobility Training, Energy Conservation Training Group Therapy/Concurrent Therapy Rationales: -Allow therapist to observe and teach generalization and carry-over of skills learned in individual therapy. -Enhance problem solving and sequencing skills during therapeutic activities in a distracted environment. -Promote increased safety awareness in a realistic setting to reduce fall risk with functional tasks due to visual and verbal distractions. -Increase functional level with ADLs, ADL transfers and use of adaptive equipment through therapeutic activities with others while promoting safety to allow a more safe, self-sufficient return home. Medical Prognosis: Good Anticipated Length of Stay: 10 days Rehab Goals: Eating Goal: 06-Independent Oral Hygiene Goal: 06-Independent Toileting Hygiene Goal: 06-Independent Shower/Bathe Self Goal: 06-Independent Upper Body Dressing Goal: 06-Independent Lower Body Dressing Goal: 06-Independent Putting On/Taking Off Footwear Goal: 06-Independent Rolling Left and Right Goal: 06-Independent Sit to Lying Goal: 06-Independent Lying to Sitting on Side of Bed Goal: 06-Independent Sit to Stand Goal: 06-Independent Chair/Vui-bq-Dsycb Transfer Goal: 06-Independent Toilet Transfer Goal: 06-Independent Car Transfer Goal: 06-Independent Walk 10' Goal: 06-Independent Walk 50' with Two Turns Goal: 02-Substantial/Maximal Assistance Walk 150' Goal: 09-Not Applicable Walk 10' on Uneven Surface Goal: 06-Independent 1 Step (Curb) Goal
[2019-12-21 14:00] VITALS: BP 118/62; PULSE 96; RESP 18; TEMP 36; O2SAT 97
--- NOTE | 2019-12-21 14:19 | WPDNEURORHBP ---
Subjective Date/time seen: 12/21/19 14:19 Interval history: this patient who is 78-year-old is here because of partial amputation of right foot from which she is healing well. She has rather complicated history which includes multiple issues including steroid induced myopathy she is also on spinal cord stimulator rather than the pain pump she is doing fairly well but have a many issues with her medications she wants me to change her Bumex 2 Aldactone however I will need some assistance either from the hospitalist or her primary care physician she denies any headache nausea vomiting chest pain shortness of breath fever chills or sore throat Review of Systems Review of Systems: All systems reviewed & are unremarkable except as noted in HPI and below Functional Status Ambulation Ability Ambulation Assistive Devices: Walker, Wheeled Transfers Ability Ability to Transfer In/Out of Chair: Contact Guard Exam Const: General: comfortable and no acute distress HENMT: General nose exam: Normal nares present Mouth: Yes moist mucous membranes Eyes: General: appearance normal, both eyes and all related structures Neck: Neck: supple and no JVD Resp: Effort & Inspection: normal respiratory effort Auscultation: clear to auscultation bilaterally Cardio: Rate: regular rate Rhythm: regular rhythm GI: GI Palp: Yes Soft to palpation Auscultation: normal bowel sounds Skin: General skin exam: normal color and no rashes or lesions noted Neuro: Other: patient is awake alert well oriented time place and person has generalized weakness and of course partial amputation of the right foot along with evidence of peripheral neuropathy and myopathy Extrem: Other: evidence of neuropathy in partial amputation of the right foot Psych: Mental Status: mental status grossly normal Objective Data Vital Signs Vital Signs: Vital Signs - 24 hr 12/20/19 20:25 12/20/19 22:00 12/21/19 06:00 Temperature 36.4 C 36.4 C Pulse Rate 68 66 Respiratory Rate 16 18 Blood Pressure 136/68 125/56 L Pulse Oximetry 97 97 97 12/21/19 08:00 12/21/19 08:44 Temperature Pulse Rate 66 Respiratory Rate 18 Blood Pressure Pulse Oximetry 94 94 Intake/Output Intake/Output: Intake & Output 12/18/19 12/19/19 12/20/19 12/21/19 23:59 23:59 23:59 23:59 Intake Total 1500 1000 Balance 1500 1000 Meds/Results Medications: Active Medications Generic Name Dose Route Start Last Admin Trade Name Freq PRN Reason Stop Dose Admin Hydrocodone Bitart/Acetaminophen 1 tab 12/19/19 22:00 12/21/19 09:48 [place] 5-325 Mg PO 1 tab Q4H BLANCA Administration Albuterol 2.5 mg 12/19/19 19:38 Albuterol Sulf Neb 2.5 Mg/3 Ml INHALATION DAILY PRN Wheezing Albuterol 2 puff 12/19/19 19:38 Proventil Hfa INHALATION DAILY PRN Wheezing Artificial Tears 1 drop 12/20/19 03:03 Artificial Tears EACH EYE QID PRN Dry Eye(s) Bumetanide 2 mg 12/20/19 09:00 12/21/19 09:47 Bumex Po PO 2 mg DAILY BLANCA Administration Clindamycin HCl 300 mg 12/19/19 22:00 12/21/19 05:33 Cleocin Cap PO 12/27/19 22:01 300 mg Q8HR BLANCA Administration Docusate Sodium 200 mg 12/19/19 21:00 Colace Capsule PO Q12HR PRN Constipation Fish Oil 3 gm 12/20/19 09:00 12/21/19 09:46 Lovaza PO 3 gm DAILY BLANCA Administration Fluticasone Propionate 1 spray 12/19/19 21:00 Flonase 0.05% Nasal [place] NASAL Q12H PRN nasal congestion Folic Acid 1 mg 12/20/19 09:00 12/21/19 09:47 Folic Acid PO 1 mg DAILY BLANCA Administration Methocarbamol 750 mg 12/19/19 22:00 12/21/19 05:34 Robaxin PO 750 mg Q8HR BLANCA Administration Methylphenidate HCl 10 mg 12/19/19 21:00 Ritalin PO 6XD PRN DROWSINESS Oxycodone HCl 5 mg 12/19/19 21:36 12/20/19 03:49 Roxicodone Ir Tablet PO 5 mg Q4H PRN Administration Pain Rated 7-10 Polyethylene Glycol 17 gm 12/20/19
[2019-12-21] MEDS: PREGABALIN 75 MG CAPSULE 150 MG PO ×2 (18:11→20:44)
[2019-12-21 18:51] LABS: Folic Acid > 20.0 ng/mL (2.76->20)
[2019-12-21 20:30] VITALS: O2SAT 93
[2019-12-21 22:00] VITALS: BP 135/67; PULSE 78; RESP 20; TEMP 36.3; O2SAT 92
[2019-12-22] MEDS: CLINDAMYCIN HCL 150 MG CAP 300 MG PO ×3 (05:37→20:35)
[2019-12-22] MEDS: methocarbamoL 750 MG TABLET PO ×3 (05:37→20:34)
[2019-12-22 06:00] VITALS: BP 136/61; PULSE 91; RESP 18; TEMP 36.8; O2SAT 94
[2019-12-22 07:30] VITALS: O2SAT 94
[2019-12-22] MEDS: PREGABALIN 75 MG CAPSULE PO ×2 (09:52→12:31)
[2019-12-22] MEDS: predniSONE 20 MG TABLET 40 MG PO (09:58)
[2019-12-22] MEDS: FOLIC ACID 1 MG TABLET PO (09:59)
[2019-12-22] MEDS: OMEGA 3 POLYUNSAT FATTY ACIDS 1 GM CAP 3 GM PO (09:59)
[2019-12-22] MEDS: POTASSIUM CHLORIDE 20 MEQ TABLET.ER PO ×2 (10:00→20:35)
[2019-12-22] MEDS: DOCUSATE SODIUM 100 MG CAPSULE 200 MG PO (10:03)
[2019-12-22] MEDS: CYANOCOBALAMIN 1,000 MCG TABLET 1000 MCG PO (12:33)
[2019-12-22 14:00] VITALS: BP 129/62; PULSE 78; RESP 18; TEMP 36; O2SAT 98
[2019-12-22] MEDS: PREGABALIN 75 MG CAPSULE 150 MG PO ×2 (18:34→20:35)
[2019-12-22] MEDS: POVIDONE-IODINE 10% SOLUTION 118 ML BOTTLE TOPICAL (18:34)
[2019-12-22 21:21] VITALS: O2SAT 95
[2019-12-22 22:00] VITALS: BP 145/73; PULSE 65; RESP 18; TEMP 36.4; O2SAT 97
[2019-12-23 04:32] LABS: Potassium 4.6 mmol/L (3.4-5.0)
[2019-12-23] MEDS: CLINDAMYCIN HCL 150 MG CAP 300 MG PO ×3 (05:52→21:37)
[2019-12-23] MEDS: methocarbamoL 750 MG TABLET PO ×3 (05:52→21:36)
[2019-12-23 06:00] VITALS: BP 129/65; PULSE 83; RESP 18; TEMP 36.8; O2SAT 100
[2019-12-23 07:45] VITALS: O2SAT 97
[2019-12-23] MEDS: PREGABALIN 75 MG CAPSULE PO ×2 (09:12→12:25)
[2019-12-23] MEDS: CYANOCOBALAMIN 1,000 MCG TABLET 1000 MCG PO (09:14)
[2019-12-23] MEDS: FOLIC ACID 1 MG TABLET PO (09:14)
[2019-12-23] MEDS: OMEGA 3 POLYUNSAT FATTY ACIDS 1 GM CAP 3 GM PO (09:14)
[2019-12-23] MEDS: predniSONE 20 MG TABLET 40 MG PO (09:14)
[2019-12-23] MEDS: POTASSIUM CHLORIDE 20 MEQ TABLET.ER PO ×2 (09:15→21:42)
[2019-12-23] MEDS: SPIRONOLACTONE 50 MG TABLET PO ×2 (09:15→18:05)
[2019-12-23] MEDS: DOCUSATE SODIUM 100 MG CAPSULE 200 MG PO ×2 (09:17→18:07)
[2019-12-23] MEDS: PHARMACIST COMMUNICATION ORDER 1 EACH XX (10:21)
--- NOTE | 2019-12-23 10:33 | PCPTNOTE ---
Mindy White PT completed an inpatient rehab wheelchair evaluation on Cristina Avery on 12/23/2019. The patient is unable to safely and independently ambulate household distances due to their current impairments. Their diagnosis is R Transmetatarsel Amputation and their impairments include decreased strength, decreased endurance, decreased range of motion, decreased balance, lower extremity weakness, and ataxia. Cristina's weight bearing status is [id number] on the right lower leg. The patient demonstrates significant functional mobility limitations that impair their ability to participate in mobility-related activities of daily living (MRADLs), including toileting, feeding, dressing, grooming, and bathing in the customary locations in the home. These limitations cannot be sufficiently resolved by the use of an appropriately fitted cane or walker. It is recommended that the patient utilize a wheelchair for functional mobility within the home in order to facilitate optimal safety, independence and participation in all MRADL's and adequately access their home environment on a regular basis. The patient's home provides adequate access between rooms, maneuvering space, and surfaces to accommodate the recommended wheelchair. The use of a wheelchair for functional mobility is strongly recommended and the patient is receptive to using the wheelchair. The use of this wheelchair will significantly improve the patient's ability to participate in MRADLS and the patient will use it on a regular basis in the home. This will facilitate optimal safety, independence, and participation. The patient has demonstrated sufficient physical and mental capabilities needed to safely propel a manual wheelchair that is provided in the home during a typical day. Recommended Wheelchair Frame:standard Recommended Wheelchair Size: 16 x 16 Recommended Wheelchair Cushion:standard Wheelchair Leg Recommendations: elevating detachable Elevating legrests are recommended because the patient has a musculoskeletal condition or the presence of a cast or brace which prevents 90 degree flexion at the knee. Elevating legrests are recommended because the patient has significant edema of the lower extremities that requires an elevating legrest. Anti-tippers are recommended due to patient demonstrating increased risk for falls. They would benefit from anti-tippers with added safety and stabilization. ____Mindy White PT __6/12/20 Evaluating Therapist Date I agree with and certify that the above recommendation is medically necessary. Referring Physician Date I agree with and certify that the above recommendation is medically necessary. Referring Physician Date
--- NOTE | 2019-12-23 10:51 | PCDIET ---
Nutrition Follow-Up Complete: Nutrition Diagnosis: Increased protein/calorie needs related to increased demands for healing as evidenced by recent right transmetatarsal amputation. Nutrition Goal: Patient to consume 75% of meals or greater. Goal met. Patient consuming 80-100% of meals on regular diet. Reports good appetite without c/o or concerns. Last recorded weight is 63.1 kg. Recommend obtaining new weight. Bowel Motility: +BM on 12/22/19. Labs Reviewed: K (4.6) Meds Noted: Albuterol, Bumex, Colace, Fish Oil, Prednisone, Folic Acid, Miralax, KCl, Aldactone Additional Notes: MCV low, B12 borderline, homocysteine pending. Right foot incision with dressing. No other documented skin breakdown. Will continue to monitor with same goal. Nutrition Monitoring and Evaluation: Follow up every 7 days.
[2019-12-23] MEDS: RIVAROXABAN 10 MG TABLET PO (13:29)
--- NOTE | 2019-12-23 13:48 | WPDNEURORHBP ---
Subjective Date/time seen: 12/23/19 13:48 Interval history: this 79-year-old he is here primarily because of having had trans metatarsal amputation of the foot she is doing fairly well but complaining of neuropathic pain does not want to take the B12 does not want to take the Bumex and she manages her own medication as she has been told to so we will discontinue the B12 at this point she denies any headache nausea vomiting chest pain shortness of breath fever chills sore throat Review of Systems Review of Systems: All systems reviewed & are unremarkable except as noted in HPI and below Functional Status Ambulation Ability Ability to Ambulate 10 Feet: Contact Guard Ambulation Assistive Devices: Walker, Wheeled Transfers Ability Ability to Transfer In/Out of Chair: Contact Guard Exam Const: General: comfortable and no acute distress HENMT: General nose exam: Normal nares present Mouth: Yes moist mucous membranes Eyes: General: appearance normal, both eyes and all related structures Neck: Neck: supple and no JVD Resp: Effort & Inspection: normal respiratory effort Auscultation: clear to auscultation bilaterally Cardio: Rate: regular rate Rhythm: regular rhythm GI: GI Palp: Yes Soft to palpation Auscultation: normal bowel sounds Skin: General skin exam: normal color and no rashes or lesions noted Neuro: Other: the patient is awake alert well oriented time place and person has normal speech and language function normal cranial examination however generalized weakness of both row lower extremities and of course having the transmetatarsal amputation the right foot which has been looked upon by the algorithm developer who performed the surgery and seems to be healthy and clean Extrem: Other: the removal of the matter dorsal partial foot amputation is clean Psych: Mental Status: mental status grossly normal Objective Data Vital Signs Vital Signs: Vital Signs - 24 hr 12/22/19 14:00 12/22/19 21:21 12/22/19 22:00 Temperature 36.0 C L 36.4 C Pulse Rate 78 65 Respiratory Rate 18 18 Blood Pressure 129/62 145/73 H Pulse Oximetry 98 95 97 12/23/19 06:00 12/23/19 07:45 Temperature 36.8 C Pulse Rate 83 Respiratory Rate 18 Blood Pressure 129/65 Pulse Oximetry 100 97 Intake/Output Intake/Output: Intake & Output 12/20/19 12/21/19 12/22/19 12/23/19 23:59 23:59 23:59 23:59 Intake Total 1500 1500 1580 620 Balance 1500 1500 1580 620 Meds/Results Medications: Active Medications Generic Name Dose Route Start Last Admin Trade Name Freq PRN Reason Stop Dose Admin Hydrocodone Bitart/Acetaminophen 1 tab 12/19/19 22:00 12/23/19 13:28 [place] 5-325 Mg PO 1 tab Q4H BLANCA Administration Albuterol 2.5 mg 12/19/19 19:38 Albuterol Sulf Neb 2.5 Mg/3 Ml INHALATION DAILY PRN Wheezing Albuterol 2 puff 12/19/19 19:38 Proventil Hfa INHALATION DAILY PRN Wheezing Artificial Tears 1 drop 12/20/19 03:03 Artificial Tears EACH EYE QID PRN Dry Eye(s) Bumetanide 2 mg 12/22/19 10:16 Bumex Po PO DAILY PRN Edema Clindamycin HCl 300 mg 12/19/19 22:00 12/23/19 13:29 Cleocin Cap PO 12/27/19 22:01 300 mg Q8HR BLANCA Administration Docusate Sodium 200 mg 12/19/19 21:00 12/23/19 09:17 Colace Capsule PO 200 mg Q12HR PRN Administration Constipation Fish Oil 3 gm 12/20/19 09:00 12/23/19 09:14 Lovaza PO 3 gm DAILY BLANCA Administration Fluticasone Propionate 1 spray 12/19/19 21:00 Flonase 0.05% Nasal [place] NASAL Q12H PRN nasal congestion Folic Acid 1 mg 12/20/19 09:00 12/23/19 09:14 Folic Acid PO 1 mg DAILY BLANCA Administration Methocarbamol 750 mg 12/19/19 22:00 12/23/19 05:52 Robaxin PO 750 mg Q8HR BLANCA Administration Methylphenidate HCl 10 mg 12/19/19 21:00 Ritalin PO 6XD PRN DROWSINESS Oxycodone HCl 5 mg 12/19/19 21:36 12/23/19 09:12 Roxicodone Ir Tablet PO
[2019-12-23 14:00] VITALS: BP 121/62; PULSE 104; RESP 18; TEMP 36.1; O2SAT 98
[2019-12-23] MEDS: PREGABALIN 75 MG CAPSULE 150 MG PO ×2 (18:36→21:42)
[2019-12-23 20:43] VITALS: O2SAT 96
[2019-12-23 20:53] VITALS: BP 122/59; PULSE 71; RESP 18; TEMP 36.7; O2SAT 93
[2019-12-24 03:47] LABS: Homocysteine 9.4 umol/L (<10.4)
[2019-12-24 05:20] VITALS: BP 137/65; PULSE 78; RESP 18; TEMP 36.7; O2SAT 96
[2019-12-24] MEDS: methocarbamoL 750 MG TABLET PO ×3 (05:43→21:00)
[2019-12-24] MEDS: CLINDAMYCIN HCL 150 MG CAP 300 MG PO ×3 (05:43→21:00)
[2019-12-24 08:00] VITALS: PULSE 82; RESP 18; O2SAT 94
[2019-12-24 08:17] VITALS: PULSE 80; O2SAT 94
[2019-12-24] MEDS: predniSONE 20 MG TABLET 40 MG PO (10:12)
[2019-12-24] MEDS: RIVAROXABAN 10 MG TABLET PO (10:12)
[2019-12-24] MEDS: BUMETANIDE 1 MG TABLET 2 MG PO (10:12)
[2019-12-24] MEDS: PREGABALIN 75 MG CAPSULE PO ×2 (10:12→12:53)
[2019-12-24] MEDS: FOLIC ACID 1 MG TABLET PO (10:13)
[2019-12-24] MEDS: POVIDONE-IODINE 10% SOLUTION 118 ML BOTTLE TOPICAL (10:13)
[2019-12-24] MEDS: OMEGA 3 POLYUNSAT FATTY ACIDS 1 GM CAP 3 GM PO (10:13)
[2019-12-24] MEDS: POTASSIUM CHLORIDE 20 MEQ TABLET.ER PO ×2 (10:13→21:01)
[2019-12-24] MEDS: DOCUSATE SODIUM 100 MG CAPSULE 200 MG PO (12:54)
[2019-12-24 14:00] VITALS: BP 144/83; PULSE 86; RESP 17; TEMP 35.9; O2SAT 96
--- NOTE | 2019-12-24 17:25 | WPDNEURORHBP ---
Subjective Date/time seen: 12/24/19 17:25 Interval history: this 79-year-old is here after having had transmetatarsal amputation of the right foot along with multiple medical issues mentioned in my initial history and physical examination she did not want to take the B12 which I had discontinued she is stable at this point making progress she has been started on Xarelto as recommended by the surgeon who performed the surgery she denies any fever chills sore throat headache nausea vomiting and quite happy with the care she is receiving Review of Systems Review of Systems: All systems reviewed & are unremarkable except as noted in HPI and below Functional Status Ambulation Ability Ability to Ambulate 10 Feet: Minimum Assistance X 1 Ambulation Assistive Devices: Walker, Wheeled Transfers Ability Ability to Transfer In/Out of Chair: Contact Guard Exam Const: General: comfortable and no acute distress HENMT: General nose exam: Normal nares present Mouth: Yes moist mucous membranes Eyes: General: appearance normal, both eyes and all related structures Neck: Neck: supple and no JVD Resp: Effort & Inspection: normal respiratory effort Auscultation: clear to auscultation bilaterally Cardio: Rate: regular rate Rhythm: regular rhythm GI: GI Palp: Yes Soft to palpation Auscultation: normal bowel sounds Skin: General skin exam: normal color and no rashes or lesions noted Neuro: Other: patient is awake alert well oriented has normal speech and function normal cranial examination the strength in lower extremities in the upper extremities is improving with the stable sensory deficit Extrem: Other: evidence of peripheral neuropathy and of course the transmetatarsal amputation of the right foot Psych: Mental Status: mental status grossly normal Objective Data Vital Signs Vital Signs: Vital Signs - 24 hr 12/23/19 20:43 12/23/19 20:53 12/24/19 05:20 Temperature 36.7 C 36.7 C Pulse Rate 71 78 Respiratory Rate 18 18 Blood Pressure 122/59 L 137/65 Pulse Oximetry 96 93 96 12/24/19 08:00 12/24/19 08:17 12/24/19 14:00 Temperature 35.9 C L Pulse Rate 82 80 86 Respiratory Rate 18 17 Blood Pressure 144/83 H Pulse Oximetry 94 94 96 Intake/Output Intake/Output: Intake & Output 12/21/19 12/22/19 12/23/19 12/24/19 23:59 23:59 23:59 23:59 Intake Total 1500 1580 1580 1000 Balance 1500 1580 1580 1000 Meds/Results Medications: Active Medications Generic Name Dose Route Start Last Admin Trade Name Freq PRN Reason Stop Dose Admin Hydrocodone Bitart/Acetaminophen 1 tab 12/19/19 22:00 12/24/19 14:48 [place] 5-325 Mg PO 1 tab Q4H BLANCA Administration Albuterol 2.5 mg 12/19/19 19:38 Albuterol Sulf Neb 2.5 Mg/3 Ml INHALATION DAILY PRN Wheezing Albuterol 2 puff 12/19/19 19:38 Proventil Hfa INHALATION DAILY PRN Wheezing Artificial Tears 1 drop 12/20/19 03:03 Artificial Tears EACH EYE QID PRN Dry Eye(s) Bumetanide 2 mg 12/22/19 10:16 12/24/19 10:12 Bumex Po PO 2 mg DAILY PRN Administration Edema Clindamycin HCl 300 mg 12/19/19 22:00 12/24/19 14:54 Cleocin Cap PO 12/27/19 22:01 300 mg Q8HR BLANCA Administration Docusate Sodium 200 mg 12/19/19 21:00 12/24/19 12:54 Colace Capsule PO 200 mg Q12HR PRN Administration Constipation Fish Oil 3 gm 12/20/19 09:00 12/24/19 10:13 Lovaza PO 3 gm DAILY BLANCA Administration Fluticasone Propionate 1 spray 12/19/19 21:00 Flonase 0.05% Nasal [place] NASAL Q12H PRN nasal congestion Folic Acid 1 mg 12/20/19 09:00 12/24/19 10:13 Folic Acid PO 1 mg DAILY BLANCA Administration Methocarbamol 750 mg 12/19/19 22:00 12/24/19 14:54 Robaxin PO 750 mg Q8HR BLANCA Administration Methylphenidate HCl 10 mg 12/19/19 21:00 Ritalin PO 6XD PRN DROWSINESS Oxycodone HCl 5 mg 12/19/19 21:36 12/24/19 12:53 Roxicodone Ir Tablet PO
[2019-12-24] MEDS: PREGABALIN 75 MG CAPSULE 150 MG PO ×2 (17:59→20:58)
[2019-12-24 20:00] VITALS: BP 133/69; PULSE 73; RESP 16; TEMP 36.6; O2SAT 98
[2019-12-25] MEDS: CLINDAMYCIN HCL 150 MG CAP 300 MG PO ×3 (05:25→21:16)
[2019-12-25] MEDS: methocarbamoL 750 MG TABLET PO ×3 (05:26→21:16)
[2019-12-25 05:42] LABS: Potassium 4.3 mmol/L (3.4-5.0)
[2019-12-25 05:52] VITALS: BP 121/70; PULSE 67; RESP 20; TEMP 36.9; O2SAT 100
[2019-12-25 08:46] VITALS: PULSE 72; RESP 16; O2SAT 97
[2019-12-25] MEDS: predniSONE 20 MG TABLET 40 MG PO (08:46)
[2019-12-25] MEDS: OMEGA 3 POLYUNSAT FATTY ACIDS 1 GM CAP 3 GM PO (08:47)
[2019-12-25] MEDS: RIVAROXABAN 10 MG TABLET PO (08:47)
[2019-12-25] MEDS: FOLIC ACID 1 MG TABLET PO (08:47)
[2019-12-25] MEDS: POTASSIUM CHLORIDE 20 MEQ TABLET.ER PO ×2 (08:47→21:20)
[2019-12-25] MEDS: PREGABALIN 75 MG CAPSULE PO ×2 (08:54→13:31)
[2019-12-25 09:20] VITALS: PULSE 73; RESP 16; O2SAT 97
[2019-12-25 14:00] VITALS: BP 136/63; PULSE 87; RESP 17; TEMP 36.4; O2SAT 95
[2019-12-25] MEDS: PREGABALIN 75 MG CAPSULE 150 MG PO (18:15)
[2019-12-25] MEDS: SPIRONOLACTONE 50 MG TABLET PO (18:19)
--- NOTE | 2019-12-25 18:38 | WPDNEURORHBP ---
Subjective Date/time seen: 12/25/19 18:38 Interval history: this 79-year-old woman with underlying multiple medical issues including peripheral neuropathy is here after having had right foot trans metatarsal amputation the medications were reviewed in detail the patient is improving fairly well making progress there is no headache nausea vomiting chest pain shortness of breath fever chills sore throat Review of Systems Review of Systems: All systems reviewed & are unremarkable except as noted in HPI and below Functional Status Ambulation Ability Ability to Ambulate 10 Feet: Minimum Assistance X 1 Ambulation Assistive Devices: Walker, Wheeled Transfers Ability Ability to Transfer In/Out of Chair: Contact Guard Exam Const: General: comfortable and no acute distress HENMT: General nose exam: Normal nares present Mouth: Yes moist mucous membranes Eyes: General: appearance normal, both eyes and all related structures Neck: Neck: supple and no JVD Resp: Effort & Inspection: normal respiratory effort Auscultation: clear to auscultation bilaterally Cardio: Rate: regular rate Rhythm: regular rhythm GI: GI Palp: Yes Soft to palpation Auscultation: normal bowel sounds Skin: General skin exam: normal color and no rashes or lesions noted Neuro: Other: patient is awake and alert well oriented with normal cranial examination normal mental status examination and evidence of peripheral neuropathy along with of course evidence of the transmetatarsal resection of the right foot Extrem: Other: the dissection site is well dressed no drainage is noted Psych: Mental Status: mental status grossly normal Objective Data Vital Signs Vital Signs: Vital Signs - 24 hr 12/24/19 20:00 12/25/19 05:52 12/25/19 08:46 Temperature 36.6 C 36.9 C Pulse Rate 73 67 72 Respiratory Rate 16 20 16 Blood Pressure 133/69 121/70 Pulse Oximetry 98 100 97 12/25/19 09:20 12/25/19 14:00 Temperature 36.4 C L Pulse Rate 73 87 Respiratory Rate 16 17 Blood Pressure 136/63 Pulse Oximetry 97 95 Intake/Output Intake/Output: Intake & Output 12/22/19 12/23/19 12/24/19 12/25/19 23:59 23:59 23:59 23:59 Intake Total 1580 1580 1500 500 Balance 1580 1580 1500 500 Meds/Results Medications: Active Medications Generic Name Dose Route Start Last Admin Trade Name Freq PRN Reason Stop Dose Admin Hydrocodone Bitart/Acetaminophen 1 tab 12/19/19 22:00 12/25/19 18:15 [place] 5-325 Mg PO 1 tab Q4H BLANCA Administration Albuterol 2.5 mg 12/19/19 19:38 Albuterol Sulf Neb 2.5 Mg/3 Ml INHALATION DAILY PRN Wheezing Albuterol 2 puff 12/19/19 19:38 Proventil Hfa INHALATION DAILY PRN Wheezing Artificial Tears 1 drop 12/20/19 03:03 Artificial Tears EACH EYE QID PRN Dry Eye(s) Bumetanide 2 mg 12/22/19 10:16 12/24/19 10:12 Bumex Po PO 2 mg DAILY PRN Administration Edema Clindamycin HCl 300 mg 12/19/19 22:00 12/25/19 13:31 Cleocin Cap PO 12/27/19 22:01 300 mg Q8HR BLANCA Administration Docusate Sodium 200 mg 12/19/19 21:00 12/24/19 12:54 Colace Capsule PO 200 mg Q12HR PRN Administration Constipation Fish Oil 3 gm 12/20/19 09:00 12/25/19 08:47 Lovaza PO 3 gm DAILY BLANCA Administration Fluticasone Propionate 1 spray 12/19/19 21:00 Flonase 0.05% Nasal [place] NASAL Q12H PRN nasal congestion Folic Acid 1 mg 12/20/19 09:00 12/25/19 08:47 Folic Acid PO 1 mg DAILY BLANCA Administration Methocarbamol 750 mg 12/19/19 22:00 12/25/19 13:31 Robaxin PO 750 mg Q8HR BLANCA Administration Methylphenidate HCl 10 mg 12/19/19 21:00 Ritalin PO 6XD PRN DROWSINESS Oxycodone HCl 5 mg 12/19/19 21:36 12/25/19 00:58 Roxicodone Ir Tablet PO 5 mg Q4H PRN Administration Pain Rated 7-10 Polyethylene Glycol 17 gm 12/20/19 09:00 12/25/19 18:15 Miralax PO Not Given BID [facility] Potassium Chloride
[2019-12-25 19:47] VITALS: O2SAT 95
[2019-12-25 22:00] VITALS: BP 122/67; PULSE 76; RESP 20; TEMP 36.8; O2SAT 99
[2019-12-26] MEDS: PREGABALIN 75 MG CAPSULE 150 MG PO ×3 (00:33→20:58)
[2019-12-26 05:33] VITALS: O2SAT 97
[2019-12-26] MEDS: methocarbamoL 750 MG TABLET PO ×3 (05:55→20:57)
[2019-12-26] MEDS: CLINDAMYCIN HCL 150 MG CAP 300 MG PO ×3 (05:55→20:58)
[2019-12-26 06:00] VITALS: BP 129/69; PULSE 88; RESP 20; TEMP 36.4; O2SAT 96
[2019-12-26] MEDS: PREGABALIN 75 MG CAPSULE PO ×2 (10:01→13:29)
[2019-12-26] MEDS: predniSONE 20 MG TABLET 40 MG PO (10:02)
[2019-12-26] MEDS: FOLIC ACID 1 MG TABLET PO (10:03)
[2019-12-26] MEDS: OMEGA 3 POLYUNSAT FATTY ACIDS 1 GM CAP 3 GM PO (10:03)
[2019-12-26] MEDS: POTASSIUM CHLORIDE 20 MEQ TABLET.ER PO ×2 (10:04→20:55)
[2019-12-26] MEDS: RIVAROXABAN 10 MG TABLET PO (10:04)
[2019-12-26] MEDS: POVIDONE-IODINE 10% SOLUTION 118 ML BOTTLE TOPICAL (10:04)
[2019-12-26] MEDS: SPIRONOLACTONE 50 MG TABLET PO (10:05)
[2019-12-26 14:00] VITALS: BP 125/65; PULSE 100; RESP 20; TEMP 37.1; O2SAT 98
[2019-12-26 20:35] VITALS: O2SAT 95
[2019-12-26 22:00] VITALS: BP 154/81; PULSE 80; RESP 20; TEMP 36.4; O2SAT 97
[2019-12-27] VITALS (7 sets, daily range): BP systolic 117–144; BP diastolic 56–81; PULSE 67–91; RESP 18–20; TEMP 35.9–36.7; O2SAT 97–100
[2019-12-27 04:57] LABS: Basophils Percent Auto 0.4 % (0.2-1.2); Eosinophils Percent Auto 0.2 % (0-4.4); Hematocrit 41.5 % (37.0-47.0); Hemoglobin 12.6 g/dL (12.0-15.0); Immature Granulocyte Absolute 0.11 K/mm3 (0.00-0.031); Immature Granulocyte Percent A 1.4 % (0-0.5); Lymphocytes Absolute Auto 1.04 K/mm3 (0.9-3.2); Lymphocytes Percent Auto 12.9 % (18.3-44.2); Mean Corpuscular HGB Conc 30.4 g/dl (32-36); Mean Corpuscular Hemoglobin 23.6 pg (26-34); Mean Corpuscular Volume 77.7 fl (80-100); Mean Platelet Volume 9.2 fl (7.4-10.4); Monocytes Percent Auto 12.3 % (2.6-8.5); Neutrophils Absolute Auto 5.9 K/mm3 (1.3-6.7); Neutrophils Percent Auto 72.8 % (45.5-73.1); Platelet Count Result 275 k/mm3 (150-375); Red Blood Count 5.34 M/mm3 (4.2-5.4); Red Cell Distribution Width 20.2 % (11.5-14.5); White Blood Count 8.1 K/mm3 (4.5-10.0)
[2019-12-27 05:15] LABS: Blood Urea Nitrogen 14 mg/dL (7-17); Calcium 7.8 mg/dL (8.4-10.2); Carbon Dioxide 33 mmol/L (22-30); Chloride 102 mmol/L (98-107); Estimated CRCL calculation 59 ml/min; Estimated Glomerular Filt Rate > 60; Glucose 79 mg/dL (65-105); Sodium 132 mmol/L (137-145)
[2019-12-27] MEDS: methocarbamoL 750 MG TABLET PO ×3 (06:02→21:07)
[2019-12-27] MEDS: CLINDAMYCIN HCL 150 MG CAP 300 MG PO ×3 (06:02→21:06)
--- NOTE | 2019-12-27 11:28 | PCPTNOTE ---
Prudence Daksha Avery was evaluated for a wheeled walker on 12/27/2019 by this physical therapist. The wheeled walker will resolve patient's mobility limitations and will be used for ADL's within the home. The patient can safely use the wheeled walker. ?The wheeled walker will resolve the patient?s mobility deficits, including impaired balance, impaired strength, R LE Non-weightbearing status, and R LE pain. Maureen Fox, PT, DPT
[2019-12-27] MEDS: OMEGA 3 POLYUNSAT FATTY ACIDS 1 GM CAP 3 GM PO (11:49)
[2019-12-27] MEDS: FOLIC ACID 1 MG TABLET PO (11:50)
[2019-12-27] MEDS: PREGABALIN 75 MG CAPSULE PO ×2 (11:50→13:57)
[2019-12-27] MEDS: predniSONE 20 MG TABLET 40 MG PO (11:50)
[2019-12-27] MEDS: RIVAROXABAN 10 MG TABLET PO (11:51)
[2019-12-27] MEDS: POTASSIUM CHLORIDE 20 MEQ TABLET.ER PO ×2 (11:51→21:07)
--- NOTE | 2019-12-27 15:23 | WPDNEURORHBP ---
Subjective Date/time seen: 12/27/19 15:23 Interval history: this 79-year-old woman who has underlying multiple medical issues and has had trans metatarsal amputation of the right foot doing fairly well denies any headache nausea vomiting chest pain shortness of last 5 fever chills and would probably be discharged tomorrow Review of Systems Review of Systems: All systems reviewed & are unremarkable except as noted in HPI and below Functional Status Ambulation Ability Ability to Ambulate 10 Feet: Contact Guard Ambulation Assistive Devices: Walker, Wheeled Transfers Ability Ability to Transfer In/Out of Chair: Independent Exam Const: General: comfortable and no acute distress HENMT: General nose exam: Normal nares present Mouth: Yes moist mucous membranes Eyes: General: appearance normal, both eyes and all related structures Neck: Neck: supple and no JVD Resp: Effort & Inspection: normal respiratory effort Auscultation: clear to auscultation bilaterally Cardio: Rate: regular rate Rhythm: regular rhythm GI: GI Palp: Yes Soft to palpation Auscultation: normal bowel sounds Skin: General skin exam: normal color and no rashes or lesions noted Neuro: Other: patient is awake alert well oriented has evidence of peripheral neuropathy the weakness is improving overall Extrem: General: normal to inspection Psych: Mental Status: mental status grossly normal Objective Data Vital Signs Vital Signs: Vital Signs - 24 hr 12/26/19 20:35 12/26/19 22:00 12/27/19 06:00 Temperature 36.4 C 36.3 C L Pulse Rate 80 67 Respiratory Rate 20 20 Blood Pressure 154/81 H 117/56 L Pulse Oximetry 95 97 99 12/27/19 09:10 12/27/19 14:00 Temperature 36.7 C Pulse Rate 91 Respiratory Rate 18 Blood Pressure 121/81 Pulse Oximetry 97 97 Intake/Output Intake/Output: Intake & Output 12/24/19 12/25/19 12/26/19 12/27/19 23:59 23:59 23:59 23:59 Intake Total 1500 1000 1959 1000 Balance 1500 1000 1960 1000 Meds/Results Medications: Active Medications Generic Name Dose Route Start Last Admin Trade Name Freq PRN Reason Stop Dose Admin Hydrocodone Bitart/Acetaminophen 1 tab 12/19/19 22:00 12/27/19 13:57 [place] 5-325 Mg PO 1 tab Q4H BLANCA Administration Albuterol 2.5 mg 12/19/19 19:38 Albuterol Sulf Neb 2.5 Mg/3 Ml INHALATION DAILY PRN Wheezing Albuterol 2 puff 12/19/19 19:38 Proventil Hfa INHALATION DAILY PRN Wheezing Artificial Tears 1 drop 12/20/19 03:03 Artificial Tears EACH EYE QID PRN Dry Eye(s) Bumetanide 2 mg 12/22/19 10:16 12/24/19 10:12 Bumex Po PO 2 mg DAILY PRN Administration Edema Clindamycin HCl 300 mg 12/19/19 22:00 12/27/19 13:57 Cleocin Cap PO 12/27/19 22:01 300 mg Q8HR BLANCA Administration Docusate Sodium 200 mg 12/19/19 21:00 12/24/19 12:54 Colace Capsule PO 200 mg Q12HR PRN Administration Constipation Fish Oil 3 gm 12/20/19 09:00 12/27/19 11:49 Lovaza PO 3 gm DAILY BLANCA Administration Fluticasone Propionate 1 spray 12/19/19 21:00 Flonase 0.05% Nasal [place] NASAL Q12H PRN nasal congestion Folic Acid 1 mg 12/20/19 09:00 12/27/19 11:50 Folic Acid PO 1 mg DAILY BLANCA Administration Methocarbamol 750 mg 12/19/19 22:00 12/27/19 13:57 Robaxin PO 750 mg Q8HR BLANCA Administration Methylphenidate HCl 10 mg 12/19/19 21:00 Ritalin PO 6XD PRN DROWSINESS Oxycodone HCl 5 mg 12/19/19 21:36 12/25/19 00:58 Roxicodone Ir Tablet PO 5 mg Q4H PRN Administration Pain Rated 7-10 Polyethylene Glycol 17 gm 12/20/19 09:00 12/27/19 11:51 Miralax PO Not Given BID BLANCA Potassium Chloride 20 meq 12/19/19 21:00 12/27/19 11:51 Kcl Tablet PO 20 meq Q12HR BLANCA Administration Povidone Iodine 1 ml 12/22/19 15:55 12/26/19 10:04 Betadine Solution TOPICAL 1 ml Q48HR BLANCA Administration Prednisone 40 mg 12/20/19
[2019-12-27] MEDS: PREGABALIN 75 MG CAPSULE 150 MG PO ×2 (17:38→22:19)
[2019-12-28] MEDS: methocarbamoL 750 MG TABLET PO ×2 (05:44→14:10)
[2019-12-28 06:00] VITALS: BP 120/56; PULSE 67; RESP 18; TEMP 36.4; O2SAT 98
[2019-12-28 07:51] VITALS: O2SAT 97
[2019-12-28] MEDS: OMEGA 3 POLYUNSAT FATTY ACIDS 1 GM CAP 3 GM PO (10:04)
[2019-12-28] MEDS: predniSONE 20 MG TABLET 40 MG PO (10:04)
[2019-12-28] MEDS: FOLIC ACID 1 MG TABLET PO (10:04)
[2019-12-28] MEDS: RIVAROXABAN 10 MG TABLET PO (10:05)
[2019-12-28] MEDS: PREGABALIN 75 MG CAPSULE PO ×2 (10:05→12:31)
[2019-12-28] MEDS: POTASSIUM CHLORIDE 20 MEQ TABLET.ER PO (10:05)
[2019-12-28] MEDS: POVIDONE-IODINE 10% SOLUTION 118 ML BOTTLE TOPICAL (10:08)
--- NOTE | 2020-01-03 15:01 | PM.DS ---
DS: Admitting Diagnosis Admitting Diagnosis Admitting Diagnosis: Other disorder of circulatory system DS: Discharge Diagnosis Discharge Diagnosis (1) Spinal cord stimulator status: Code(s): Z96.89 - Presence of other specified functional implants Status: Acute (2) DVT prophylaxis: Code(s): Z29.9 - Encounter for prophylactic measures, unspecified Status: Acute (3) Amputation of right forefoot: Code(s): S98.911A - Complete traumatic amputation of right foot, level unspecified, initial encounter Status: Acute (4) Polymyalgia rheumatica: Code(s): M35.3 - Polymyalgia rheumatica Status: Chronic (5) Elevated homocysteine: Code(s): R79.89 - Other specified abnormal findings of blood chemistry Status: Acute (6) Polycythemia: Code(s): D75.1 - Secondary polycythemia Status: Acute (7) Adult BMI 19-24 kg/sq m: Status: Acute (8) Common variable immunodeficiency, unspecified: Code(s): D83.9 - Common variable immunodeficiency, unspecified Status: Acute (9) Nocturnal hypoxia: Code(s): G47.34 - Idiopathic sleep related nonobstructive alveolar hypoventilation Status: Acute (10) Steroid-induced myopathy: Code(s): G72.0 - Drug-induced myopathy; T38.0X5A - Adverse effect of glucocorticoids and synthetic analogues, initial encounter Status: Acute (11) PVD (peripheral vascular disease): Code(s): I73.9 - Peripheral vascular disease, unspecified Status: Acute (12) Venous insufficiency: Code(s): I87.2 - Venous insufficiency (chronic) (peripheral) Status: Acute (13) Right upper lobe pulmonary nodule: Code(s): R91.1 - Solitary pulmonary nodule Status: Acute (14) Pedal edema: Code(s): R60.0 - Localized edema Status: Acute (15) Neuropathy: Code(s): G62.9 - Polyneuropathy, unspecified Status: Acute (16) Chronic obstructive pulmonary disease: Qualifiers: COPD type: unspecified COPD Qualified Code(s): J44.9 - Chronic obstructive pulmonary disease, unspecified Code(s): J44.9 - Chronic obstructive pulmonary disease, unspecified Status: Chronic (17) Amputated toe of right foot: Code(s): S98.131A - Complete traumatic amputation of one right lesser toe, initial encounter Status: Acute (18) Chronic low back pain: Code(s): M54.5 - Low back pain; G89.29 - Other chronic pain Status: Acute (19) Head and neck cancer: Code(s): C76.0 - Malignant neoplasm of head, face and neck Status: Acute (20) Anxiety with depression: Code(s): F41.8 - Other specified anxiety disorders Status: Acute (21) Muscle weakness: Code(s): M62.81 - Muscle weakness (generalized) Status: Acute DS: Summary Hospital Course Reason for hospitalization: 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 of the multiple medical issues primarily however because of the right partial foot amputation with the underlying conditions as mentioned above she received the PT OT gait training and multiple medications and was able to achieve the following independence measures Hospital Course: at the time of discharge the patient was eating independently oral hygiene was independent toileting was independent bathing was supervision upper body dressing was independent lower body dressing was independent footwear was independent rolling in bed was independent sitting lying was independent lying to sitting was independent [id number] was independent chair transfers were independent toilet transfers independent car transfers independent walking 10 feet was independent walking 50 feet with turns patient was unable to walking 150 feet patient was unable to walking 10 feet uneven surfaces independent [place] step patient was unable to 4 steps patient was unable to 12 stressed patient was unable to picking up objects independent wheelchair 5
== END 2019-12-28 15:00 | disposition home health service (06) | DRG 560 ==
PROVIDERS: Admitting Provider Psychiatry & Neurology Neurology; PCP Internal Medicine; Visit Provider Psychiatry & Neurology Neurology
DX: Z47.81 Encounter for orthopedic aftercare following surgical amputation (principal); E87.1 Hypo-osmolality and hyponatremia; G72.0 Drug-induced myopathy; Z89.431 Acquired absence of right foot; I99.8 Other disorder of circulatory system; I87.2 Venous insufficiency (chronic) (peripheral); L97.519 Non-pressure chronic ulcer of other part of right foot with unspecified severity; I10 Essential (primary) hypertension; D75.1 Secondary polycythemia; E16.1 Other hypoglycemia; E83.51 Hypocalcemia; F41.8 Other specified anxiety disorders; F98.8 Other specified behavioral and emotional disorders with onset usually occurring in childhood and adolescence; F17.210 Nicotine dependence, cigarettes, uncomplicated; G47.34 Idiopathic sleep related nonobstructive alveolar hypoventilation; G89.29 Other chronic pain; G62.9 Polyneuropathy, unspecified; H91.90 Unspecified hearing loss, unspecified ear; I95.9 Hypotension, unspecified; J44.9 Chronic obstructive pulmonary disease, unspecified; K76.89 Other specified diseases of liver; M35.3 Polymyalgia rheumatica; R91.1 Solitary pulmonary nodule; R60.9 Edema, unspecified; T38.0X5D Adverse effect of glucocorticoids and synthetic analogues, subsequent encounter; Z97.8 Presence of other specified devices; Z99.81 Dependence on supplemental oxygen; Z89.421 Acquired absence of other right toe(s); Z85.89 Personal history of malignant neoplasm of other organs and systems
CPT/HCPCS: 36415; 80048; 82607; 82746; 83090; 84132; 84443; 85025; 94640; 97110; 97116; 97162; 97166; 97530; 97535; 97542; A9270; J7512

== ENCOUNTER 2020-01-09 13:06 | Outpatient (CLI) | payer MEDICARE, OTHER, SELFPAY ==
[2020-01-09 14:27] LABS: Add Urine Microscopic? YES; Appearance Urine Clear (Clear); Bacteria Urine Trace /hpf; Bilirubin Urine Negative (Negative); Blood Urine 2+ (Negative); Color Urine Colorless (Yellow); Glucose Urine UA Negative (Negative); Ketones Urine Negative (Negative); Leukocyte Esterase Ur Negative LEU/UL (Negative); Nitrate Urine Negative (Negative); Protein Urine Negative (Negative); Specific Grav Ur 1.004 (1.001-1.035); Urobilinogen Urine Negative mg/dL (<2.0); WBC Urine 0-3 /hpf
== END 2020-01-09 13:07 | disposition home or self-care (01) ==
PROVIDERS: PCP Internal Medicine; Visit Provider Internal Medicine
DX: R35.0 Frequency of micturition (principal)
CPT/HCPCS: 81001

== ENCOUNTER 2020-01-26 14:36 | Outpatient (CLI) | payer MEDICARE, OTHER, SELFPAY ==
[2020-01-26 15:34] LABS: Cholesterol 175 mg/dL (0-200); HDL Direct 54 mg/dL; Triglycerides 80 mg/dL (<150)
[2020-01-26 15:37] LABS: Hemoglobin A1C 5.4 % (<5.7)
[2020-01-26 15:45] LABS: LDL Cholesterol Direct 96 mg/dL
[2020-01-26 15:58] LABS: Iron 25 ug/dL (37-170)
[2020-01-26 16:05] LABS: Thyroid Stimulating Hormone 0.641 uIU/mL (0.465-4.680)
[2020-01-26 16:08] LABS: Percent Iron Saturation 6 % (20-50)
[2020-01-31 22:55] LABS: Homocysteine 8.2 umol/L (<10.4)
== END 2020-01-26 14:37 | disposition home or self-care (01) ==
LOC: ANHLAB 14:41
PROVIDERS: PCP Internal Medicine; Visit Provider Internal Medicine
DX: R71.8 Other abnormality of red blood cells (principal); R79.89 Other specified abnormal findings of blood chemistry; Z79.899 Other long term (current) drug therapy
CPT/HCPCS: 36415; 80061; 82728; 83036; 83090; 83540; 83550; 84443

== ENCOUNTER 2020-03-01 12:30 | Inpatient (IN) | payer MEDICARE, OTHER, SELFPAY ==
[2020-03-01] VITALS (10 sets, daily range): BP systolic 83–115; BP diastolic 43–71; PULSE 79–97; RESP 11–20; TEMP 36.1–37; O2SAT 92–100
--- NOTE | ~2020-03-01 | XR_ITS ---
EXAMINATION: XR foot LT min 3V DATE: 03/01/2020 14:00 INDICATION: Left foot pain. TECHNIQUE: 4 views of left foot were obtained. COMPARISON: Left foot radiographs 08/15/2013 FINDINGS: Bone alignment is normal. No fracture. There is mild osteoarthritis of some of the interpha langeal joints and midfoot joints. There is an enthesophyte at the plantar aspect of calcaneal tubero sity. IMPRESSION: 1. Mild polyarticular osteoarthritis. Reviewed, dictated and finalized at location A.
--- NOTE | ~2020-03-01 | XR_ITS ---
EXAMINATION: XR foot RT min 3V DATE: 03/01/2020 14:00 INDICATION: Right foot swelling and erythema. TECHNIQUE: 4 views of right foot were obtained. COMPARISON: Right foot radiographs 11/25/2018 FINDINGS: There are changes of transmetatarsal amputation of the forefoot. There is nonaggressive per iosteal reaction at diaphysis of fourth metatarsal that is new from 11/25/18, consistent with healing. No erosions of bone to suggest osteomyelitis. There is mild midfoot osteoarthritis. There is an enth esophyte at plantar aspect of calcaneal tuberosity. IMPRESSION: 1. Transmetatarsal amputation of the forefoot. Reviewed, dictated and finalized at location A.
--- NOTE | ~2020-03-01 | XR_ITS ---
EXAMINATION: XR chest 1V INDICATION: Weakness, history of metastatic squamous cell cancer TECHNIQUE: AP view of the chest is obtained. COMPARISON: 02/07/2019 FINDINGS: A right internal jugular Port-A-Cath ends with its tip in the proximal right atrium. The alex ngs are free of acute opacities. There is no pleural effusion or pneumothorax. The cardiomediastinal silhouette is normal. Neurostimulator leads project over the lower thoracic spine. There is moderate osteoarthritis of the shoulders. IMPRESSION: 1. No acute cardiopulmonary abnormality. Reviewed, dictated and finalized at location A.
--- NOTE | ~2020-03-01 | CT_ITS ---
EXAMINATION: CT brain wo con INDICATION: Weakness, history of metastatic squamous cell carcinoma COMPARISON: None TECHNIQUE: Standard unenhanced head CT. The dose-length product (DLP) was 605.33 mGy-cm. The mA was a djusted according to patient size. Iterative reconstruction technique was employed. FINDINGS: There are multiple mildly hyperdense lesions scattered throughout the brain which measure u p to 11 mm. One is also seen adjacent to the cavernous portion of the left internal carotid artery. T here are varying degrees of adjacent vasogenic edema in the white matter. There is no acute intrapare nchymal hemorrhage. No evidence of acute infarction. There is moderate periventricular and subcortica l hypodensity probably related to small vessel ischemic disease. There is moderate prominence of the sulci and ventricles related to cerebral atrophy. Intracranial calcified cerebral atherosclerosis is noted. There are no extra-axial collections. There is no mass effect or midline shift. The orbits and soft tissues are unremarkable. The visualized sinuses and mastoid air cells are well aerated. IMPRESSION: 1. Multiple intracranial hyperdense lesions most consistent with metastatic disease given history of squamous cell carcinoma. 2. Age related findings. These findings were discussed with Dr. Leonor Watts MD in the Emergency Department at 1356 on . Reviewed, dictated and finalized at location A. IMPRESSION: 1. Multiple intracranial hyperdense lesions most consistent with metastatic dis ease given history of squamous cell carcinoma. 2. Age related findings. These findings were discussed with Dr. Leonor Watts MD in the Emergency De partment at 1356 on 03/01/2020.
--- NOTE | 2020-03-01 12:48 | PC.NURSE ---
erp courtney at bedside.
--- NOTE | 2020-03-01 13:01 | ECG_ITS ---
Measurements Intervals [place] Rate: 80 P: 101 FL: 105 QRS: -46 QRSD: 77 T: 66 QT: 373 QTc: 433 Interpretive Statements SINUS RHYTHM LOW QRS VOLTAGE IN LIMB LEADS LEFT ANTERIOR FASCICULAR BLOCK BASELINE ARTIFACT- II, III, AVR, AVL, AVF, V3-V6 ABNORMAL ECG Electronically Signed On 03-01-2020 13:23:01 CDT by Alli Smith D.O.
[2020-03-01] MEDS: SODIUM CHLORIDE 0.9% IV 1,000 ML 999 ML IV CONT (13:08)
[2020-03-01 13:22] LABS: Alveolar/Arterial O2 Gradient 29.8 mmHg; Base Excess ABG -4.2 mEq/l (+/-2.0); Carboxyhemoglobin 2.2 % THb (0-2.0); Fractional Inspired Oxygen 21 %; HCO3 ABG 20.1 mEq/l (22.0-26.0); Methemoglobin ABG 0.2 %THb (0-1.5); Oxygen Content ABG 19.4 %vol (16.0-22.0); Oxygen Saturation ABG 95.4 % (95.0-100.0); Oxyhemoglobin 92.5 % THb (90.0-100.0); PCO2 ABG 34.9 mmHg (35.0-45.0); PO2 ABG 78.1 mmHg (80.0-100.0); PO2 FiO2 Ratio Arterial Blood 3.72 %; Reduced Hemoglobin 5.1 %THb (0-5.0); Total Hemoglobin 14.9 g/dL (12.0-18.0); pH ABG 7.379 (7.350-7.450)
[2020-03-01 13:23] LABS: Device ROOM AIR; Site Drawn LEFT BRACHIAL
[2020-03-01 13:32] LABS: Basophils Absolute Auto 0.1 K/mm3 (0.0-0.1); Basophils Percent Auto 0.6 % (0.2-1.2); Eosinophils Percent Auto 0.1 % (0-4.4); Hematocrit 44.5 % (37.0-47.0); Hemoglobin 15.1 g/dL (12.0-15.0); Immature Granulocyte Percent A 0.5 % (0-0.5); Immature Platelet Fraction Pct 8.2 % (0.9-11.2); Lymphocytes Absolute Auto 0.46 K/mm3 (0.9-3.2); Lymphocytes Percent Auto 2.4 % (18.3-44.2); Mean Corpuscular HGB Conc 33.9 g/dl (32-36); Mean Corpuscular Hemoglobin 23.6 pg (26-34); Mean Corpuscular Volume 69.5 fl (80-100); Monocytes Absolute Auto 0.6 K/mm3 (0.1-0.6); Monocytes Percent Auto 3.2 % (2.6-8.5); Neutrophils Absolute Auto 17.9 K/mm3 (1.3-6.7); Neutrophils Percent Auto 93.2 % (45.5-73.1); Platelet Count Result 187 k/mm3 (150-375); Red Cell Distribution Width 19.3 % (11.5-14.5); White Blood Count 19.2 K/mm3 (4.5-10.0)
--- NOTE | 2020-03-01 13:36 | ED.GENADULT ---
HPI - General Adult General Chief complaint: Recheck/Abnormal Lab/Rx Stated complaint: weakness Time Seen by Provider: 03/01/20 12:37 Source: patient Mode of arrival: ambulatory Limitations: no limitations History of Present Illness HPI narrative: This patient is an 79 year old female with metastatic Squamous cell carcinoma, peripheral vascular disease who presents from Dr. Guerrero' office for evaluation of weakness and possible sepsis. Patient was placed on hospice several weeks ago due to progression of her cancer. She states she had a right mid foot amputation performed by DR. Mac [address] Guerrero states her foot looks like the wound has dehisced. Patient reports chronic bilateral burning foot pain. She als0 reports progression of her weakness so she went to see her PCP Dr. Guerrero . She denies fever, chills, vomiting, chest pain or cough. She reports she wants IVF and antibiotics to see if that makes her feel better. She does not want intubation or CPR so she is DNR. Related Data Home Medications Medication Instructions Recorded Confirmed albuterol sulfate 90 mcg/actuation 2 puff INHALATION DAILY PRN gm 07/20/19 03/01/20 aerosol inhaler bumetanide 2 mg tablet 2 mg PO DAILY tablet 07/20/19 03/01/20 methocarbamol 750 mg tablet 750 mg PO TID tablet 07/20/19 03/01/20 omega-3 fatty acids 1,000 mg 3,000 mg PO DAILY cap 12/06/19 03/01/20 capsule pregabalin 75 mg capsule 75 mg PO USEASDIRECTD cap 12/06/19 03/01/20 Cetuximab IV 01/09/20 01/09/20 Medical Marijuanna USEASDIRECTD 03/01/20 Zolendronic Acid 4 mg IV DIRECTED 03/01/20 03/01/20 aspirin 325 mg PO DAILY 03/01/20 03/01/20 calcium carbonate-vitamin D3 1 tablet PO BID 03/01/20 03/01/20 [Calcium 500 + D] carboxymethylcellulose sodium 1 drp LEFTEYE DAILY PRN 03/01/20 03/01/20 [Artificial Tears (cmc)] doxycycline hyclate 100 mg PO Q12H 03/01/20 03/01/20 glycopyrrolate-formoterol [Bevespi 2 puff INHALATION BID 03/01/20 03/01/20 Aerosphere] immun glob G(IgG)-pro-IgA 0-50 SUBCUT 03/01/20 [Hizentra] multivit with min-folic acid 0.4 mg PO DAILY 03/01/20 03/01/20 [Adult One Daily Multivitamin] ondansetron HCl [Zofran] 8 mg PO Q6H PRN 03/01/20 03/01/20 prednisone 40 mg PO DAILY 03/01/20 03/01/20 spironolactone [Aldactone] 50 mg PO BID 03/01/20 03/01/20 Allergies Allergy/AdvReac Type Severity Reaction Status Date / Time Qglugjf-Ohf-Hho Reductase Allergy Unknown Joint Pain Verified 03/01/20 12:40 Inhibitor Review of Systems Review of Systems: All systems reviewed & are unremarkable except as noted in HPI and below Constitutional: Constitutional: Denies chills, Denies fever(s) and Reports weakness Cardiovascular: Cardiovascular: Denies chest pain Respiratory: Respiratory: Denies cough and Reports dyspnea Gastrointestinal: Gastrointestinal: Denies abdominal pain, Denies diarrhea, Reports nausea and Denies vomiting Musculoskeletal: Musculoskeletal: Reports arthralgias Neurologic: Reports weakness PMFSH Past Medical History Medical History (Updated 03/01/20 @ 21:34 by Leonor Watts MD) ADD (attention deficit disorder) Amputated toe of right foot Anxiety with depression Chronic low back pain Chronic obstructive pulmonary disease Footdrop Gangrene Head and neck cancer Herpes zoster 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 Patient reports that she had metastatic liver disease and was treated with Keytruda. Steroid-induced myopathy Surgical History Surgical History (Updated 01/09/20 @ 12:30 by Mindy Santoyo) Cataract extraction status H/O rectal polypectomy H/O: hysterectomy History of adenoidectomy History of seth
[2020-03-01 13:40] LABS: INR 1.3; Prothrombin Time 15.9 Seconds (11.1-14.7)
[2020-03-01 13:41] LABS: Partial Thromboplastin Time 41.8 SECONDS (22.3-36.8)
[2020-03-01 13:42] LABS: Lactic Acid Reflex 3.2 mmol/L (0.7-2.1)
[2020-03-01 13:46] LABS: Add Urine Microscopic? YES; Appearance Urine Clear (Clear); Bilirubin Urine Negative (Negative); Blood Urine 1+ (Negative); Color Urine Yellow (Yellow); Glucose Urine UA Negative (Negative); Hyaline Casts Urine 30-49 /lpf; Ketones Urine Negative (Negative); Leukocyte Esterase Ur Negative LEU/UL (Negative); Mucus Urine Rare /lpf; Nitrate Urine Negative (Negative); Protein Urine Negative (Negative); RBC Urine 0-2 /hpf (0-2); Specific Grav Ur 1.012 (1.001-1.035); Squamous Epithelial Cell Urine Rare /hpf (Few); WBC Urine 0-3 /hpf
[2020-03-01 13:46] LABS: Alanine Aminotransferase 139 U/L (4-35); Albumin Level 2.2 g/dL (3.5-5.1); Alkaline Phosphatase 1279 U/L (38-126); Anion Gap 15 mmol/L (8-16); Aspartate Amino Transferase 234 U/L (14-36); Bilirubin,Total 2.5 mg/dL (0.2-1.3); Blood Urea Nitrogen 65 mg/dL (7-17); Calcium 5.9 mg/dL (8.4-10.2); Carbon Dioxide 22 mmol/L (22-30); Chloride 84 mmol/L (98-107); Glucose 30 mg/dL (65-105); Lipase 93 U/L (23-300); Magnesium 1.8 mg/dL (1.6-2.3); Potassium 4.8 mmol/L (3.4-5.0); Sodium 121 mmol/L (137-145)
[2020-03-01 13:53] LABS: Troponin I < 0.012 ng/mL (0.000-0.034)
[2020-03-01] MEDS: DEXTROSE 50% 25 GM/50 ML SYRINGE IV PUSH (13:54)
--- NOTE | 2020-03-01 14:00 | PC.NURSE ---
pt back from ct, erp valdez at bedside, informing pt of current results.
[2020-03-01 14:09] LABS: Estimated CRCL calculation 16 ml/min; Estimated Glomerular Filt Rate 21
[2020-03-01 14:10] LABS: CRP 23.5 mg/dL (<1.0)
[2020-03-01] MEDS: SODIUM CHLORIDE 0.9% IV 1,000 ML 999 ML (14:20)
--- NOTE | 2020-03-01 14:21 | PC.NURSE ---
verbal order from chloe valdez to give 1L stat bolus NS.
[2020-03-01 14:27] LABS: Glucose Point of Care 67 (65-105)
--- NOTE | 2020-03-01 14:29 | PC.NURSE ---
spoke with chloe valdez, verbal order given to feed pt, r/t bedside glucose 67.
[2020-03-01] MEDS: ONDANSETRON INJ 4 MG/2 ML VIAL IV PUSH (15:44)
[2020-03-01 16:26] LABS: Reflex Lactic Acid Yes or No Add Lactic
--- NOTE | 2020-03-01 16:45 | PM.IMHP ---
H&P: HPI History of Present Illness Date/Time: 03/01/20 16:45 Chief complaint: Generalized weakness. Narrative: Prudence Daksha Avery is an 79-year-old female who was recently put on hospice after she stopped responding to treatment for her metastatic squamous cell carcinoma of unknown primary who presented to the emergency department earlier this afternoon from her primary care provider's office for evaluation of generalized weakness. She is followed by Dr. Felipe at [place], and approximately 3 to 4 weeks ago he stopped her chemotherapy, presumably due to progression of disease despite treatment, in addition to debilitating side effects including pretty constant nausea. Over the past 3 weeks or so she reports a significant increase in nausea to the point where she has not been eating much in addition to progressive weakness. She has also noted a decrease in urine output and has had episodes of urgency and incontinence but no dysuria. Additionally, she has had increasing pain in her lower legs and feet where she has severe peripheral neuropathy and vascular disease. Also of note, she had a right transmetatarsal amputation her Dr. Mac the first week of December 2019, for which she has been taking antibiotics due to continued infection at the operative site. Today she went to see Dr. Guerrero due to profound weakness and generalized malaise, who felt that she needed to come to the hospital due to her symptoms including concerns for possible sepsis. In doing so, she revoked [facility] hospice. On arrival to the emergency department, she did meet criteria for severe sepsis, presumably due to right foot infection. She was also found to have multiple lesions in her brain consistent with metastatic disease, which is new information to her. For the time being, she is okay with IV fluid rehydration and antibiotics, and would consider vasopressors if need be. She continues to be a DNR however and wants to meet with [facility] to establish care. Review of Systems Review of Systems: Narrative: Twelve systems were reviewed with pertinent positives and negatives as per HPI. No headache. She reports chronic diplopia which is unchanged. No fever, chills, or sweats. No recent cold or flu symptoms. No cough or shortness of breath. She denies focal weakness. No facial asymmetry or dysarthria. She has not had dysuria. No diarrhea, in fact she has mild constipation. 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 Patient reports that she had metastatic liver disease and was treated with Keytruda. Steroid-induced myopathy Surgical History Surgical History (Updated 03/02/20 @ 02:21 by Shazia Mclaughlin PA-C) Amputated toe of right foot Right 2nd toe amputation. Cataract extraction status H/O rectal polypectomy History of adenoidectomy History of appendectomy History of eyelid surgery History of hysterectomy History of spinal fusion History of tonsillectomy History of transmetatarsal amputation of right foot Family History Family History Mother Family history of rheumatoid arthritis Family history of diabetes mellitus in first degree relative Diabetes mellitus Family history of pancreatic disease Father Family history of malignant neoplasm Social History Social History (Updated 03/02/20 @ 02:22 by Shazia Mclaughlin PA-C) Social History: The patient is
--- NOTE | 2020-03-01 16:45 | ADMGEN ---
This patient, Cristina Avery, was admitted to Medical Room 243-01. Patient/family oriented to hospital policies and general routines including ID bracelet, bed and alarms, visiting hours, pain management, procedures, bathroom and other care routines, personal items, smoking policy, room service/diet, and visiting hours. Valuables list has been completed. Information on how to activate the Rapid Response Team has been discussed. Patient/Family are encouraged to report perceived risks to care and to ask questions if they do not understand what they are told or what they should do.
[2020-03-01] MEDS: SODIUM CHLORIDE 0.9% IV 1,000 ML 125 ML IV CONT (16:51)
[2020-03-01 17:02] LABS: Lactic Acid 4.2 mmol/L (0.7-2.1)
[2020-03-01 17:37] LABS: Creatine Kinase 423 U/L (30-135)
[2020-03-01 17:39] LABS: Anion Gap 14 mmol/L (8-16); Blood Urea Nitrogen 57 mg/dL (7-17); Calcium 5.4 mg/dL (8.4-10.2); Carbon Dioxide 16 mmol/L (22-30); Chloride 91 mmol/L (98-107); Glucose 138 mg/dL (65-105); Magnesium 1.6 mg/dL (1.6-2.3); Phosphorus 5.9 mg/dL (2.5-4.5); Sodium 121 mmol/L (137-145)
[2020-03-01 17:45] LABS: Estimated CRCL calculation 23 ml/min; Estimated Glomerular Filt Rate 31
[2020-03-01 18:02] LABS: Glucose Point of Care 119 (65-105)
[2020-03-01 18:02] LABS: Glucose Point of Care < 20 (65-105)
[2020-03-01 18:02] LABS: Glucose Point of Care 55 (65-105)
[2020-03-01 18:02] LABS: Glucose Point of Care 30 (65-105)
[2020-03-02] MEDS: ONDANSETRON INJ 4 MG/2 ML VIAL IV PUSH ×3 (00:27→17:12)
[2020-03-02] MEDS: DEXAMETHASONE SOD PHOS INJ 4 MG/ML VIAL IV PUSH ×4 (00:28→17:13)
[2020-03-02] MEDS: SODIUM CHLORIDE 0.9% IV 1,000 ML 125 ML IV CONT (00:31)
[2020-03-02 00:37] LABS: Glucose Point of Care 98 (65-105)
[2020-03-02 03:00] LABS: Basophils Absolute Auto 0.1 K/mm3 (0.0-0.1); Basophils Percent Auto 0.8 % (0.2-1.2); Eosinophils Absolute Auto 0.3 K/mm3 (0-0.3); Eosinophils Percent Auto 2.1 % (0-4.4); Hematocrit 40.2 % (37.0-47.0); Hemoglobin 13.7 g/dL (12.0-15.0); Immature Granulocyte Absolute 0.08 K/mm3 (0.00-0.031); Immature Granulocyte Percent A 0.5 % (0-0.5); Immature Platelet Fraction Pct 7.5 % (0.9-11.2); Lymphocytes Absolute Auto 0.23 K/mm3 (0.9-3.2); Lymphocytes Percent Auto 1.5 % (18.3-44.2); Mean Corpuscular HGB Conc 34.1 g/dl (32-36); Mean Corpuscular Hemoglobin 23.8 pg (26-34); Mean Corpuscular Volume 69.8 fl (80-100); Monocytes Absolute Auto 0.4 K/mm3 (0.1-0.6); Monocytes Percent Auto 2.4 % (2.6-8.5); Neutrophils Absolute Auto 14.3 K/mm3 (1.3-6.7); Neutrophils Percent Auto 92.7 % (45.5-73.1); Platelet Count Result 158 k/mm3 (150-375); Red Blood Count 5.76 M/mm3 (4.2-5.4); Red Cell Distribution Width 18.8 % (11.5-14.5); White Blood Count 15.5 K/mm3 (4.5-10.0)
[2020-03-02 03:11] LABS: Alanine Aminotransferase 122 U/L (4-35); Albumin Level 1.8 g/dL (3.5-5.1); Alkaline Phosphatase 1008 U/L (38-126); Anion Gap 11 mmol/L (8-16); Aspartate Amino Transferase 244 U/L (14-36); Bilirubin Direct 1.1 mg/dL (0-0.3); Bilirubin,Total 2.3 mg/dL (0.2-1.3); Blood Urea Nitrogen 55 mg/dL (7-17); Calcium 5.2 mg/dL (8.4-10.2); Carbon Dioxide 21 mmol/L (22-30); Chloride 92 mmol/L (98-107); Creatine Kinase 473 U/L (30-135); Estimated CRCL calculation 19 ml/min; Estimated Glomerular Filt Rate 25; Glucose 103 mg/dL (65-105); Potassium 4.4 mmol/L (3.4-5.0); Sodium 124 mmol/L (137-145)
[2020-03-02 03:37] LABS: Creatinine Urine 28.3 mg/dL
[2020-03-02 03:39] LABS: Sodium Urine Random 35 meq/L
[2020-03-02 04:05] LABS: Hepatitis B Surface Antigen Negative (Negative)
[2020-03-02 04:11] LABS: HAV RESULT Negative (Negative); Hepatitis B Core IgM Result Negative (Negative)
[2020-03-02 04:23] LABS: Hepatitis C Virus Antibody Negative (Negative)
[2020-03-02 05:09] VITALS: BP 108/58; PULSE 85; RESP 20; TEMP 36.6; O2SAT 92
[2020-03-02 07:00] LABS: Glucose Point of Care 83 (65-105)
[2020-03-02] MEDS: PREGABALIN 75 MG CAPSULE PO ×2 (09:17→12:25)
[2020-03-02] MEDS: SODIUM CHLORIDE 0.9% IV 1,000 ML 100 ML IV CONT ×2 (09:19→21:33)
[2020-03-02 11:34] VITALS: BMI 19.9
[2020-03-02 11:35] VITALS: BMI 19.9
--- NOTE | 2020-03-02 12:11 | PM.IMPN ---
Progress Note: A&P Assessment and Plan (1) Severe sepsis: Code(s): A41.9 - Sepsis, unspecified organism; R65.20 - Severe sepsis without septic shock Status: Acute Assessment and Plan: Present on admission and supported by hypotension, leukocytosis, acute kidney injury, and lactic acid of 4.2. Presumably due to infected right foot transmetatarsal amputation site. Blood pressures are improving. Continue IV fluids and IV antibiotics Preliminary blood cultures show gram negative rods. Monitor final cultures. Monitor vital signs closely and I&Os The patient states that she wishes to establish care with hospice but is waiting for her sister to arrive before making a final decision. Given this information, will continue with treatment for sepsis and bacteremia at this time. (2) Bacteremia: Code(s): R78.81 - Bacteremia Status: Acute Assessment and Plan: Preliminary blood culture grew Gram-negative bacilli in 1 of bottles. continue IV Zosyn await final cultures (3) Peripheral arterial disease: Code(s): I73.9 - Peripheral vascular disease, unspecified Status: Acute Assessment and Plan: Legs are purple in color and cold. She recently had transmetatarsal amputation by Dr. Mac in December 2019 and had been on antibiotic therapy for continued infection at the operative site. I spoke with Dr. Mac on 03/02 who stated the patient ultimately would require bilateral BKA, however she is not a good surgical candidate and would likely be unable to tolerate the procedure. Will obtain general surgery consult based on Podiatry recommendations Wound care has evaluated the patient and patient has no wound care needs at this time. Continue aspirin 325 milligrams daily despite presence of brain metastases as she has significant peripheral vascular disease with cyanosis, discussed with patient who agreed (4) Acute kidney injury: Code(s): N17.9 - Acute kidney failure, unspecified Status: Acute Assessment and Plan: Secondary to profound dehydration from poor oral intake in the setting of loop diuretic use. renal function has remained stable today. Continue IV fluids Monitor renal function closely. Renally dose medications. (5) Metastasis to brain: Code(s): C79.31 - Secondary malignant neoplasm of brain Status: Acute Assessment and Plan: Seems to be a new finding. She was not told that these were present on recent CT/ PET scan in the last couple of months. Given surrounding vasogenic edema, she was started on dexamethasone for palliative treatment. Continue. Patient to meet with [facility] to establish care. The patient's sister is coming in from [place] tomorrow and the patient will make a decision at that time. (6) Metastatic squamous cell carcinoma: Code(s): C79.9 - Secondary malignant neoplasm of unspecified site Status: Acute Assessment and Plan: She is followed by Dr. Felipe at [place], who recently stopped treatment due to side effects and progression of disease. She was on [facility] hospice but that was revoked as she was admitted here to [facility]. [facility] consulted. Patient awaiting arrival of sister prior to making decision. (7) Hyponatremia: Code(s): E87.1 - Hypo-osmolality and hyponatremia Status: Acute Assessment and Plan: Presumably due to dehydration, although it looks like she has mild chronic hyponatremia. Continue normal saline and monitor sodium levels closely. (8) Dehydration: Code(s): E86.0 - Dehydration Status: Acute Assessment and Plan: Most likely secondary to poor p.o. intake. She is receiving IV fluid rehydration as detailed above. (9) Hypoglycemia: Code(s): E16.2 - Hypoglycemia, unspecified Status: Acute Assessment and Plan: Glucose was <20 upon arrival. Glucose has improved
[2020-03-02 12:24] LABS: Basophils Absolute Auto 0.1 K/mm3 (0.0-0.1); Basophils Percent Auto 0.6 % (0.2-1.2); Eosinophils Absolute Auto 0.4 K/mm3 (0-0.3); Eosinophils Percent Auto 1.9 % (0-4.4); Hematocrit 39.3 % (37.0-47.0); Hemoglobin 13.5 g/dL (12.0-15.0); Immature Granulocyte Absolute 0.09 K/mm3 (0.00-0.031); Immature Granulocyte Percent A 0.5 % (0-0.5); Immature Platelet Fraction Pct 7.7 % (0.9-11.2); Lymphocytes Percent Auto 1.6 % (18.3-44.2); Mean Corpuscular HGB Conc 34.4 g/dl (32-36); Mean Corpuscular Hemoglobin 23.9 pg (26-34); Mean Corpuscular Volume 69.4 fl (80-100); Monocytes Absolute Auto 0.6 K/mm3 (0.1-0.6); Monocytes Percent Auto 3.5 % (2.6-8.5); Neutrophils Absolute Auto 16.7 K/mm3 (1.3-6.7); Neutrophils Percent Auto 91.9 % (45.5-73.1); Platelet Count Result 157 k/mm3 (150-375); Red Blood Count 5.66 M/mm3 (4.2-5.4); Red Cell Distribution Width 19.3 % (11.5-14.5); White Blood Count 18.2 K/mm3 (4.5-10.0)
[2020-03-02 12:33] LABS: Alanine Aminotransferase 128 U/L (4-35); Albumin Level 1.9 g/dL (3.5-5.1); Alkaline Phosphatase 1273 U/L (38-126); Anion Gap 12 mmol/L (8-16); Aspartate Amino Transferase 282 U/L (14-36); Bilirubin,Total 2.5 mg/dL (0.2-1.3); Blood Urea Nitrogen 54 mg/dL (7-17); Calcium 5.2 mg/dL (8.4-10.2); Carbon Dioxide 19 mmol/L (22-30); Chloride 92 mmol/L (98-107); Estimated CRCL calculation 19 ml/min; Estimated Glomerular Filt Rate 25; Glucose 104 mg/dL (65-105); Potassium 4.5 mmol/L (3.4-5.0); Sodium 123 mmol/L (137-145)
[2020-03-02 12:39] LABS: Burr Cells 1+ (NORMAL); Platelet Estimate Adequate (Adequate)
[2020-03-02 14:00] VITALS: BP 120/55; PULSE 85; RESP 21; TEMP 36.1
[2020-03-02] MEDS: PREGABALIN 75 MG CAPSULE 150 MG PO ×2 (17:12→20:45)
[2020-03-02 17:25] LABS: Glucose Point of Care 106 (65-105)
[2020-03-02 17:25] LABS: Glucose Point of Care < 20 (65-105)
[2020-03-02 20:00] VITALS: BP 113/55; PULSE 105; RESP 22; TEMP 35.9; O2SAT 90
[2020-03-02 21:30] LABS: Glucose Point of Care 101 (65-105)
[2020-03-03] MEDS: DEXAMETHASONE SOD PHOS INJ 4 MG/ML VIAL IV PUSH ×3 (00:13→17:42)
[2020-03-03 04:00] VITALS: BP 107/89; PULSE 60; RESP 24; TEMP 36.4
[2020-03-03] MEDS: SODIUM CHLORIDE 0.9% IV 1,000 ML 100 ML IV CONT ×2 (06:27→17:38)
[2020-03-03 06:32] LABS: Glucose Point of Care 94 (65-105)
[2020-03-03 06:42] LABS: Basophils Absolute Auto 0.1 K/mm3 (0.0-0.1); Basophils Percent Auto 0.3 % (0.2-1.2); Eosinophils Absolute Auto 0.1 K/mm3 (0-0.3); Eosinophils Percent Auto 0.5 % (0-4.4); Hematocrit 38.7 % (37.0-47.0); Hemoglobin 13.3 g/dL (12.0-15.0); Immature Granulocyte Absolute 0.15 K/mm3 (0.00-0.031); Immature Granulocyte Percent A 0.7 % (0-0.5); Immature Platelet Fraction Pct 8.5 % (0.9-11.2); Lymphocytes Absolute Auto 0.44 K/mm3 (0.9-3.2); Lymphocytes Percent Auto 2.1 % (18.3-44.2); Mean Corpuscular HGB Conc 34.4 g/dl (32-36); Mean Corpuscular Hemoglobin 23.8 pg (26-34); Mean Corpuscular Volume 69.4 fl (80-100); Mean Platelet Volume 10.5 fl (7.4-10.4); Monocytes Absolute Auto 1.3 K/mm3 (0.1-0.6); Monocytes Percent Auto 6.2 % (2.6-8.5); Neutrophils Absolute Auto 18.6 K/mm3 (1.3-6.7); Neutrophils Percent Auto 90.2 % (45.5-73.1); Platelet Count Result 133 k/mm3 (150-375); Red Blood Count 5.58 M/mm3 (4.2-5.4); Red Cell Distribution Width 18.9 % (11.5-14.5); White Blood Count 20.7 K/mm3 (4.5-10.0)
[2020-03-03 07:11] LABS: Alanine Aminotransferase 128 U/L (4-35); Albumin Level 1.8 g/dL (3.5-5.1); Alkaline Phosphatase 1087 U/L (38-126); Anion Gap 12 mmol/L (8-16); Aspartate Amino Transferase 312 U/L (14-36); Bilirubin,Total 2.7 mg/dL (0.2-1.3); Blood Urea Nitrogen 60 mg/dL (7-17); Calcium 4.9 mg/dL (8.4-10.2); Carbon Dioxide 19 mmol/L (22-30); Chloride 95 mmol/L (98-107); Estimated CRCL calculation 17 ml/min; Estimated Glomerular Filt Rate 23; Glucose 100 mg/dL (65-105); Potassium 4.7 mmol/L (3.4-5.0); Sodium 126 mmol/L (137-145)
[2020-03-03 07:22] LABS: CRP 26.3 mg/dL (<1.0)
[2020-03-03 07:40] LABS: Platelet Estimate Adequate (Adequate)
[2020-03-03 07:41] LABS: Anisocytosis 1+ (NORMAL); Burr Cells 1+ (NORMAL); Ovalocytes 1+ (NORMAL); Poikilocytosis 1+ (NORMAL)
[2020-03-03] MEDS: PREGABALIN 75 MG CAPSULE PO (09:12)
[2020-03-03] MEDS: ASPIRIN 325 MG TABLET PO (09:12)
[2020-03-03] MEDS: THERAPEUTIC MULTIVITAMINS/MINERALS TAB (*BKC) 1 TABLET PO (09:13)
[2020-03-03] MEDS: CENTRAL LINE FLUSH 10 ML IV PUSH ×2 (09:13→14:00)
[2020-03-03] MEDS: methocarbamoL 750 MG TABLET PO ×2 (09:13→17:41)
[2020-03-03] MEDS: FOLIC ACID 1 MG TABLET PO (09:13)
[2020-03-03] MEDS: OMEGA 3 POLYUNSAT FATTY ACIDS 1 GM CAP 3 GM PO (09:13)
--- NOTE | 2020-03-03 09:28 | PM.CNGS ---
Assessment and Plan Assessment and plan (1) Right foot infection: Code(s): L08.9 - Local infection of the skin and subcutaneous tissue, unspecified Status: Acute Assessment and Plan: likely source of sepsis, will need probable yin LE BKA given wounds and underlying conditions, pt is opposed to this and is a very poor surgical candidate, pt prognosis is very poor (2) Severe sepsis: Code(s): A41.9 - Sepsis, unspecified organism; R65.20 - Severe sepsis without septic shock Status: Acute Assessment and Plan: see above, cont abx and wound care for now (3) Metastatic squamous cell carcinoma: Code(s): C79.9 - Secondary malignant neoplasm of unspecified site Status: Acute Assessment and Plan: new mets to brain, would recommend hospice evaluation History of Present Illness Consult details Consult date: 03/03/20 Reason for consult: other (bilateral LE non healing wounds, infection, sepsis) Requesting physician: Xenia Gupta PA-C Narrative: Pt is a 79 y/o F c metastatic SCC of unknown primary who presents c sepsis likely secondary to yin LE wounds. Pt was on hospice and had chemotx stopped secondary to disease progression and side effects from chemo. Pt has severe PVD, peripheral neuropathy and has R TMA done previously. Pt now presents c non-healing wounds yin LE. Pt now c new brain mets and history is difficult to obtain. I did d/w pt possibility of BKA and she was adamantly opposed. 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 Patient reports that she had metastatic liver disease and was treated with Keytruda. Steroid-induced myopathy Surgical History Surgical History Amputated toe of right foot Right 2nd toe amputation. Cataract extraction status H/O rectal polypectomy History of adenoidectomy History of appendectomy History of eyelid surgery History of hysterectomy History of spinal fusion History of tonsillectomy History of transmetatarsal amputation of right foot Family History Family History Mother Family history of rheumatoid arthritis Family history of diabetes mellitus in first degree relative Diabetes mellitus Family history of pancreatic disease Father Family history of malignant neoplasm Social History Social History Social History: The patient is and lives in her own home in [place]. She has no children. 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 She smoked about half a pack of cigarettes per day, but now smokes maybe 3 to 5 a day. She has an occasional Wen. No illicit substance use. Her sister, Tisha Dowling, is her Healthcare power of commercial litigation attorney and she wishes to be a DNR. Years smoked: 60 Smoking status: Current every day smoker Tobacco type: cigarettes Second hand tobacco smoke exposure: Yes Additional smoking assessment comments: CURRENTLY ONLY SMOKES 3 CIGARETTES A DAY Alcohol intake: former Substance use: current Substance use type: marijuana Other substance usage details: medical marijuana Last use: 02-28-2020 Gender identity
--- NOTE | 2020-03-03 12:41 | PM.IMPN ---
Progress Note: A&P Assessment and Plan (1) Severe sepsis: Code(s): A41.9 - Sepsis, unspecified organism; R65.20 - Severe sepsis without septic shock Status: Acute Assessment and Plan: Present on admission and supported by hypotension, leukocytosis, acute kidney injury, and lactic acid of 4.2. Presumably due to infected right foot transmetatarsal amputation site. Continue IV fluids and IV antibiotics Preliminary blood cultures show gram negative rods. Monitor final cultures. Monitor vital signs closely and I&Os The patient states that she wishes to establish care with hospice but is waiting for her sister to arrive from [place], hopefully today. She plans to establish with [facility] hospice and she would be a good candidate for inpatient hospice given her severe pain and severity of infection. Will continue with current treatment plan as above at this time. (2) Right foot infection: Code(s): L08.9 - Local infection of the skin and subcutaneous tissue, unspecified Status: Acute Assessment and Plan: At the site of right transmetatarsal amputation done in December 2019. I spoke with Dr. Mac on 03/02 who stated the patient ultimately would require bilateral BKA, however she is not a good surgical candidate and would likely be unable to tolerate the procedure. General surgery evaluated the patient and recommended bilateral BKA if patient wished to pursue treatment to which she was adamantly opposed. Appreciate general surgery consultation Wound care has evaluated the patient Continue Zosyn (3) Positive blood culture: Code(s): R78.81 - Bacteremia Status: Acute Assessment and Plan: Patient had growth of Morganella morganii in single anaerobic bottle. Second bottle shows NGTD. Will continue with Zosyn at this time while awaiting susceptibilities (4) Peripheral arterial disease: Code(s): I73.9 - Peripheral vascular disease, unspecified Status: Acute Assessment and Plan: Legs are cyanotic and cold with poorly healing wounds. Continue aspirin 325 milligrams daily despite presence of brain metastases as she has significant peripheral vascular disease with cyanosis, discussed with patient who agreed (5) Acute kidney injury: Code(s): N17.9 - Acute kidney failure, unspecified Status: Acute Assessment and Plan: Secondary to profound dehydration from poor oral intake in the setting of loop diuretic use. Renal function has declined today. Continue IV fluids Monitor renal function closely. Renally dose medications. (6) Metastasis to brain: Code(s): C79.31 - Secondary malignant neoplasm of brain Status: Acute Assessment and Plan: Seems to be a new finding. She was not told that these were present on recent CT/ PET scan in the last couple of months. Given surrounding vasogenic edema, she was started on dexamethasone for palliative treatment. Continue. Patient to meet with [facility] hospice to establish care. She is awaiting the arrival of her sister from [place] prior to proceeding. (7) Metastatic squamous cell carcinoma: Code(s): C79.9 - Secondary malignant neoplasm of unspecified site Status: Acute Assessment and Plan: She is followed by Dr. Felipe at [place], who recently stopped treatment due to side effects and progression of disease. She was on [facility] hospice but that was revoked as she was admitted here to [place]. [facility] consulted. Patient awaiting arrival of sister as detailed above. (8) Hyponatremia: Code(s): E87.1 - Hypo-osmolality and hyponatremia Status: Acute Assessment and Plan: Presumably due to dehydration, although it looks like she has mild chronic hyponatremia. Sodium has improved. Continue normal saline and monitor sodium levels closely. (9) Dehydration: Code(s): E86.0 - Dehydration Status: Acute Asse
[2020-03-03 14:00] VITALS: BP 94/55; PULSE 80; RESP 22; TEMP 35.9; O2SAT 90
--- NOTE | 2020-03-03 14:04 | PC.NURSE ---
offered patient pain medicine multiple times but she states it will make her more drowsy and she refuses.
[2020-03-03] MEDS: PREGABALIN 75 MG CAPSULE 150 MG PO (17:41)
[2020-03-03 18:23] LABS: Glucose Point of Care 96 (65-105)
[2020-03-07 05:28] LABS: Osmolality, Urine 327 mOsm/kg (50-1200)
--- NOTE | 2020-03-13 06:43 | PM.DS ---
DS: Admitting Diagnosis Admitting Diagnosis Admitting Diagnosis: Generalized weakness. DS: Discharge Diagnosis Discharge Diagnosis (1) Severe sepsis: Code(s): A41.9 - Sepsis, unspecified organism; R65.20 - Severe sepsis without septic shock Status: Acute Assessment and Plan: Present on admission and supported by hypotension, leukocytosis, acute kidney injury, and lactic acid of 4.2. Presumably due to infected right foot transmetatarsal amputation site. She signed on for [facility] hospice and will continue inpatient hospice care per [facility]. (2) Right foot infection: Code(s): L08.9 - Local infection of the skin and subcutaneous tissue, unspecified Status: Acute Assessment and Plan: At the site of right transmetatarsal amputation done in December 2019. I spoke with Dr. Mac on 03/02 who stated the patient ultimately would require bilateral BKA. General surgery evaluated the patient and recommended bilateral BKA if patient wished to pursue treatment to which she was adamantly opposed. She was initiated on IV Zosyn. (3) Positive blood culture: Code(s): R78.81 - Bacteremia Status: Acute Assessment and Plan: Patient had growth of Morganella morganii in single anaerobic bottle which was sensitive to Zosyn patient had been receiving. Second bottle was negative. (4) Peripheral arterial disease: Code(s): I73.9 - Peripheral vascular disease, unspecified Status: Acute Assessment and Plan: Legs are cyanotic and cold with poorly healing wounds. Continued aspirin 325 milligrams daily despite presence of brain metastases as she had significant peripheral vascular disease with cyanosis, discussed with patient who agreed (5) Acute kidney injury: Code(s): N17.9 - Acute kidney failure, unspecified Status: Acute Assessment and Plan: Secondary to profound dehydration from poor oral intake in the setting of loop diuretic use. (6) Metastasis to brain: Code(s): C79.31 - Secondary malignant neoplasm of brain Status: Acute Assessment and Plan: Seems to be a new finding. She was not told that these were present on recent CT/ PET scan in the last couple of months. Given surrounding vasogenic edema, she was started on dexamethasone for palliative treatment. Established with [facility]. (7) Metastatic squamous cell carcinoma: Code(s): C79.9 - Secondary malignant neoplasm of unspecified site Status: Acute Assessment and Plan: She is followed by Dr. Felipe at [place], who recently stopped treatment due to side effects and progression of disease. (8) Hyponatremia: Code(s): E87.1 - Hypo-osmolality and hyponatremia Status: Acute Assessment and Plan: Presumably due to dehydration, although it looks like she has mild chronic hyponatremia. Improved with normal saline. (9) Dehydration: Code(s): E86.0 - Dehydration Status: Acute Assessment and Plan: Most likely secondary to poor po intake. She received IV fluid rehydration as detailed above. (10) Hypoglycemia: Code(s): E16.2 - Hypoglycemia, unspecified Status: Acute Assessment and Plan: Glucose was <20 upon arrival. Hypoglycemia protocol was implemented. Blood sugars improved. (11) Polycythemia: Code(s): D75.1 - Secondary polycythemia Status: Acute Assessment and Plan: She has had previous therapeutic phlebotomy. CBC was monitored. DS: Summary Hospital Course Reason for hospitalization: Generalized weakness Hospital Course: Date of admission: 03/01/2020 Date of discharge: 03/03/2020 Cristina Avery is an 79-year-old female who was recently put on [facility] hospice after she stopped responding to treatment for her metastatic squamous cell carcinoma of unknown primary who presented to the emergency department on 03/01/2020 at the recommendation of her PCP for evaluation of
== END 2020-03-03 18:47 | disposition hospice, inpatient (51) | DRG 564 ==
LOC: ANHED 14:37 → ANH2MED 15:46
PROVIDERS: Physician Assistant; Admitting Provider Family Medicine; Emergency Provider General Practice; PCP Internal Medicine; Visit Provider Physician Assistant
DX: T87.43 Infection of amputation stump, right lower extremity (principal); A41.89 Other specified sepsis; R65.20 Severe sepsis without septic shock; N17.9 Acute kidney failure, unspecified; C79.31 Secondary malignant neoplasm of brain; E87.1 Hypo-osmolality and hyponatremia; L08.9 Local infection of the skin and subcutaneous tissue, unspecified; B96.4 Proteus (mirabilis) (morganii) as the cause of diseases classified elsewhere; D75.1 Secondary polycythemia; D72.829 Elevated white blood cell count, unspecified; I73.9 Peripheral vascular disease, unspecified; M85.80 Other specified disorders of bone density and structure, unspecified site; E86.0 Dehydration; F41.8 Other specified anxiety disorders; F98.8 Other specified behavioral and emotional disorders with onset usually occurring in childhood and adolescence; J44.9 Chronic obstructive pulmonary disease, unspecified; G62.9 Polyneuropathy, unspecified; M35.3 Polymyalgia rheumatica; M19.90 Unspecified osteoarthritis, unspecified site; E16.2 Hypoglycemia, unspecified; C80.1 Malignant (primary) neoplasm, unspecified; Z90.710 Acquired absence of both cervix and uterus; Z98.42 Cataract extraction status, left eye; Z87.891 Personal history of nicotine dependence; Z89.421 Acquired absence of other right toe(s); Z98.41 Cataract extraction status, right eye
CPT/HCPCS: 36415; 36600; 51701; 70450; 71045; 73630; 80048; 80053; 80074; 80076; 81001; 82375; 82550; 82570; 82805; 82948; 83050; 83605; 83690; 83735; 83930; 83935; 84100; 84300; 84443; 84484; 85025; 85055; 85610; 85730; 86140; 87040; 87077; 87186; 93005; 96361; 96365; 96366; 96375; 99291; A9270; G0378; J1100; J2405; J2543; J3370; J7030

== ENCOUNTER 2020-03-03 18:48 | HOS | payer OTHER, MEDICARE, SELFPAY ==
[2020-03-03] MEDS: MORPHINE SULFATE 2 MG/ML INJ 1 MG IV PUSH (19:34)
--- NOTE | 2020-03-03 20:56 | PC.NURSE ---
1900 ADMITTED PT TO [facility].
[2020-03-03] MEDS: SODIUM CHLORIDE 0.9% IV 500 ML 30 ML (21:47)
--- NOTE | 2020-03-04 10:04 | PM.IMHP ---
H&P: HPI History of Present Illness Date/Time: 03/04/20 10:04 Chief complaint: Lung Cancer Narrative: Prudence Daksha Avery is a 79 year old female who was recently admitted to hospice after she stopped responding to treatment for her metastatic squamous cell carcinoma of unknown primary who presented to the emergency department 03/01 in the afternoon from her primary care provider's office for evaluation of generalized weakness. She is followed by Dr. Felipe at [place], and approximately 3 to 4 weeks ago he stopped her chemotherapy due to progression of disease despite treatment and due to intolerable side effects including severe nausea. Over the past 3 weeks her nausea increased to the point where she has been eating and drinking parsimoniously. Urine output decreased and with episodes of urgency and incontinence but no dysuria. Additionally, she has had increasing pain in her lower legs and feet where she has severe peripheral neuropathy and vascular disease. She had a right transmetatarsal amputation her Dr. Mac during the first week of December,, and has been taking antibiotics due to continued infection at the operative site. On 03/01/2020, she went to see Dr. Guerrero due to profound weakness. Because of concerns about sepsis, he directed her to revoke [facility] hospice and present to the emergency department. Upon admission to acute care she was dehydrated with acute renal failure. Both legs were ischemic and infected. She met sepsis criteria. 1/2 blood cultures grew Morganella sensitive to the Zosyn that she was receiving. However, because she was failing to improve and having increased pain and restlessness, and because of her metastatic squamous cell carcinoma with brain metastases, she opted for comfort care only with inpatient hospice. She was admitted to inpatient hospice on 03/03 and at that time was drowsy but oriented to person place and time. She had increased pain and restlessness overnight. Continuous IV morphine and p.r.n. IV Ativan were administered to achieve adequate comfort. 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 Patient reports that she had metastatic liver disease and was treated with Keytruda. Steroid-induced myopathy Surgical History Surgical History Amputated toe of right foot Right 2nd toe amputation. Cataract extraction status H/O rectal polypectomy History of adenoidectomy History of appendectomy History of eyelid surgery History of hysterectomy History of spinal fusion History of tonsillectomy History of transmetatarsal amputation of right foot Family History Family History Mother Family history of rheumatoid arthritis Family history of diabetes mellitus in first degree relative Diabetes mellitus Family history of pancreatic disease Father Family history of malignant neoplasm Social History Social History (Updated 03/04/20 @ 10:31 by Timothy Zayas MD) Social History: The patient is and lives in her own home in [place]. She has no children. 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 She smoked about half a pack of cigarettes per day, but now smokes maybe 3 to 5 a day. She has an occasional Ma
--- NOTE | 2020-03-04 10:30 | PC.NURSE ---
JESSICA paperwork faxed to [facility] and placed in patient chart
--- NOTE | 2020-03-04 10:55 | PC.NURSE ---
@2195 patient's sister/POA called myself to room to assess patient stating she had not seen a breath in several minutes. upon assessment no heart beat or breaths were found by myself of charger operator helperSIENNA Major.
--- NOTE | 2020-03-05 13:20 | PM.DDS ---
Discharge Sum: Prov Provider Primary care physician: Kong Guerrero MD Admitting provider: Timothy Zayas MD Discharge Sum: Diag Contributing Factors (1) Severe sepsis: (2) Bacteremia due to Gram-negative bacteria: (3) Right foot infection: (4) Peripheral arterial disease: (5) Metastatic squamous cell carcinoma: (6) Metastasis to brain: (7) Acute kidney injury: Discharge Sum: Summary Date and Time Date of admission: 03/03/20 18:48 Summary Details: Admitted to inpatient hospice service as described in H&P. Medication titrated to comfort. Patient peacefully with her sister at bedside. Additional Data Attending physician: Timothy Zayas MD
== END 2020-03-04 13:00 | disposition expired | DRG 951 ==
PROVIDERS: Admitting Provider Internal Medicine; PCP Internal Medicine; Visit Provider Internal Medicine
DX: Z51.5 Encounter for palliative care (principal); A41.9 Sepsis, unspecified organism; R65.20 Severe sepsis without septic shock; N17.9 Acute kidney failure, unspecified; C79.31 Secondary malignant neoplasm of brain; C79.9 Secondary malignant neoplasm of unspecified site; E87.1 Hypo-osmolality and hyponatremia; D83.9 Common variable immunodeficiency, unspecified; G72.0 Drug-induced myopathy; T38.0X5A Adverse effect of glucocorticoids and synthetic analogues, initial encounter; I73.9 Peripheral vascular disease, unspecified; L08.9 Local infection of the skin and subcutaneous tissue, unspecified; J44.9 Chronic obstructive pulmonary disease, unspecified; R91.1 Solitary pulmonary nodule; M35.3 Polymyalgia rheumatica; M85.80 Other specified disorders of bone density and structure, unspecified site; F41.8 Other specified anxiety disorders; M54.9 Dorsalgia, unspecified; G89.29 Other chronic pain; F98.8 Other specified behavioral and emotional disorders with onset usually occurring in childhood and adolescence; Z87.891 Personal history of nicotine dependence
CPT/HCPCS: A9270; J2060; J2270; J7040